=== PATIENT | female | born 1935 | race African-American/Black ===

== ENCOUNTER → 2017-02-17 | Outpatient (CLI) | payer MEDICARE, MEDICAID ==
[~2017-02-17] MED LIST: ASPI-1035 PO; ATOR40TA70 PO; DIALYVITE PO; DOCU100T8 PO; ESOM20CA PO; FE F; FOLI-43 PO; GLIP5TAB12 PO; LEVA15HF4 IH; MULT-783 PO; NAPR-681 PO; REGADENOSON 0.4 MG/5 ML IV ONE; SEVE800T8 PO
== END | disposition home or self-care (01) ==
LOC: NM 07:19
DX: R07.9 Chest pain, unspecified (principal); I12.9 Hypertensive chronic kidney disease with stage 1 through stage 4 chronic kidney disease, or unspecified chronic kidney disease; N18.9 Chronic kidney disease, unspecified
CPT/HCPCS: 78452; 93017; A9500; J2785

== ENCOUNTER 2017-09-03 14:41 | Inpatient (IN) | payer MEDICARE, MEDICAID ==
[~2017-09-03] VITALS: Ht 175.3 cm; Wt 104.8 kg
[~2017-09-03 14:41] MED LIST changes: -ASPI-1035 PO; +ASPI-1158 PO; -REGADENOSON 0.4 MG/5 ML IV ONE
[2017-09-03 17:41] LABS: BASOPHILS % 0.9 % (0.0-2.0); EOSINOPHILS % 2.1 % (0.0-5.0); HEMATOCRIT. 43.6 % (36.0-48.0); HEMOGLOBIN. 14.2 g/dL (12.0-16.0); LYMPHOCYTES % 17.5 % (20.0-50.0); MEAN CORPUSCULAR HEMOGLOBIN 28.1 pg (28.0-32.0); MONOCYTES % 8.2 % (2.0-8.0); NEUTROPHILS % 71.3 % (40.0-76.0); PLATELET 142 x1000/uL (130-400); RED BLOOD CELL COUNT 5.07 mill/uL (4.2-5.4); RED CELL DISTRIBUTION WIDTH 14.9 % (11.6-14.6)
[2017-09-03 17:45] LABS: INR 1.1; PROTHROMBIN TIME 11.6 sec (9.4-11.6)
[2017-09-03] MEDS ORDERED: HYDROCODONE/ACETAMINOPHEN 10/325MG TABLET PO PRN (23:45)
[2017-09-03] MEDS ORDERED: DIPHENHYDRAMINE 50MG/ML VIAL IV PRN (23:45)
[2017-09-03] MEDS ORDERED: ACETAMINOPHEN 325MG TABLET PO PRN (23:45)
[2017-09-03] MEDS ORDERED: CLONIDINE 0.1MG TABLET PO PRN (23:45)
[2017-09-03] MEDS ORDERED: DEXTROSE 50% WATER 50ML SYRINGE IV PRN (23:45)
[2017-09-03] MEDS ORDERED: NA PHOS,M-B/NA PHOS,DI-BA ENEMA 118ML PR PRN (23:45)
[2017-09-03] MEDS ORDERED: GUAIFENESIN 200MG/10ML SUGAR FREE UDC PO PRN (23:45)
[2017-09-03] MEDS ORDERED: MAGNESIUM/ALUMINUM HYDROXIDE/SIMETHICONE 30ML UDC PO PRN (23:45)
[2017-09-03] MEDS ORDERED: ACETAMINOPHEN 650MG SUPP PR PRN (23:45)
[2017-09-03] MEDS ORDERED: HYDROCODONE/ACETAMINOPHEN 5/325MG TABLET PO PRN (23:45)
[2017-09-03] MEDS ORDERED: DOCUSATE SODIUM 100MG CAPSULE PO PRN (23:45)
[2017-09-03] MEDS ORDERED: ACETAMINOPHEN 650MG/20.3ML UDC GT PRN (23:45)
[2017-09-03] MEDS ORDERED: IPRATROPIUM/ALBUTEROL 0.5-3(2.5)MG/3ML NEB INH PRN (23:45)
[2017-09-03] MEDS ORDERED: ONDANSETRON HCL 4MG/2ML VIAL IV PRN (23:45)
[2017-09-04] VITALS (7 sets, daily range): BP systolic 121–191; BP diastolic 48–94
[2017-09-04] MEDS: SODIUM CHLORIDE 0.9% INJ 3ML FLUSH IVF SCH ×3 (05:46→20:30)
[2017-09-04] MEDS ORDERED: BLOOD SUGAR DIAGNOSTIC STRIP TEST SCH (07:40)
[2017-09-04 07:42] LABS: CARBON DIOXIDE 27 mEq/L (21-32); CHLORIDE 96 mEq/L (98-107); CREATINE KINASE 82 IU/L (26-192); HDL CHOLESTEROL 40 mg/dL (40-59); LDL CHOLESTEROL 95 mg/dL (5-100); TROPONIN I 0.12 ng/mL (0.00-0.04)
[2017-09-04] MEDS ORDERED: INSULIN LISPRO 100 UNITS/ML SUBCUT SCH (08:10)
[2017-09-04 08:53] LABS: EOSINOPHILS % 4.9 % (0.0-5.0); HEMATOCRIT. 43.5 % (36.0-48.0); HEMOGLOBIN. 14.3 g/dL (12.0-16.0); LYMPHOCYTES % 31.9 % (20.0-50.0); MEAN CORPUSCULAR HEMOGLOBIN 28.5 pg (28.0-32.0); MEAN CORPUSCULAR VOLUME 86.4 fL (81.0-99.0); MEAN PLATELET VOLUME 9.1 fl (7.4-10.4); NEUTROPHILS % 52.2 % (40.0-76.0); PLATELET 139 x1000/uL (130-400); RED BLOOD CELL COUNT 5.03 mill/uL (4.2-5.4); RED CELL DISTRIBUTION WIDTH 14.8 % (11.6-14.6)
[2017-09-04] MEDS: AMLODIPINE 2.5MG TABLET PO SCH (10:30)
[2017-09-04] MEDS: DOCUSATE SODIUM 100MG CAPSULE PO SCH ×2 (10:30→17:18)
[2017-09-04] MEDS: LOSARTAN POTASSIUM 50 MG TABLET PO SCH (10:30)
[2017-09-04] MEDS: SEVELAMER CARBONATE 800 MG TABLET PO SCH ×2 (14:03→17:18)
[2017-09-04 15:49] LABS: TROPONIN I 0.11 ng/mL (0.00-0.04)
[2017-09-04] MEDS ORDERED: ATORVASTATIN CALCIUM 40MG TABLET PO SCH (21:00)
[2017-09-05 00:05] VITALS: BP 132/70
[2017-09-05 04:00] VITALS: BP 144/61
[2017-09-05] MEDS: SODIUM CHLORIDE 0.9% INJ 3ML FLUSH IVF SCH ×2 (05:40→14:21)
[2017-09-05 06:48] LABS: PHOSPHORUS 3.7 mg/dL (2.5-4.9)
[2017-09-05 08:00] VITALS: BP 129/75
[2017-09-05 08:11] LABS: BASOPHILS % 1.2 % (0.0-2.0); EOSINOPHILS % 4.9 % (0.0-5.0); HEMATOCRIT. 44.3 % (36.0-48.0); HEMOGLOBIN. 14.3 g/dL (12.0-16.0); LYMPHOCYTES % 28.9 % (20.0-50.0); MEAN CORPUSCULAR HEMOGLOBIN 28.1 pg (28.0-32.0); MEAN CORPUSCULAR VOLUME 86.8 fL (81.0-99.0); MEAN PLATELET VOLUME 9.3 fl (7.4-10.4); MONOCYTES % 9.1 % (2.0-8.0); NEUTROPHILS % 55.9 % (40.0-76.0); PLATELET 139 x1000/uL (130-400); RED CELL DISTRIBUTION WIDTH 14.9 % (11.6-14.6)
[2017-09-05] MEDS: AMLODIPINE 2.5MG TABLET PO SCH (08:22)
[2017-09-05] MEDS: LOSARTAN POTASSIUM 50 MG TABLET PO SCH (08:22)
[2017-09-05] MEDS: DOCUSATE SODIUM 100MG CAPSULE PO SCH ×2 (08:22→16:05)
[2017-09-05] MEDS: SEVELAMER CARBONATE 800 MG TABLET PO SCH (08:22)
[2017-09-05] MEDS ORDERED: FOLIC ACID/VITAMIN B COMP W-C TABLET PO SCH (09:00)
[2017-09-05 12:00] VITALS: BP 122/52
[2017-09-05 16:00] VITALS: BP 142/59
[2017-09-05 18:20] VITALS: BP 142/59
[2017-09-05] MEDS ORDERED: PREDNISOLONE ACETATE 1% OPHTH DROPS 1ML BOTHEYE SCH (20:00)
[2017-09-05] MEDS ORDERED: CIPROFLOXACIN 0.3% OPHTH SOLN 2.5ML BOTHEYE SCH (21:00)
== END 2017-09-05 18:45 | disposition home or self-care (01) | DRG 124 ==
LOC: ER 15:14 → 7WST 22:51 → EDBEDREQTM 22:57 → EDBEDREQ 22:57 → ENRESERV 09-04 03:32
PROVIDERS: ADMIT Family Medicine; ATTEND Family Medicine
PROC: 5A1D70Z Performance of Urinary Filtration, Intermittent, Less than 6 Hours Per Day (ICD-10-PCS; principal; 2017-09-04)
DX: S05.12XA Contusion of eyeball and orbital tissues, left eye, initial encounter (principal); N18.6 End stage renal disease; I13.2 Hypertensive heart and chronic kidney disease with heart failure and with stage 5 chronic kidney disease, or end stage renal disease; E46 Unspecified protein-calorie malnutrition; E11.22 Type 2 diabetes mellitus with diabetic chronic kidney disease; Q61.3 Polycystic kidney, unspecified; N18.5 Chronic kidney disease, stage 5; E11.40 Type 2 diabetes mellitus with diabetic neuropathy, unspecified; I50.9 Heart failure, unspecified; W01.0XXA Fall on same level from slipping, tripping and stumbling without subsequent striking against object, initial encounter; M54.16 Radiculopathy, lumbar region; E87.5 Hyperkalemia; M48.061 Spinal stenosis, lumbar region without neurogenic claudication; J45.909 Unspecified asthma, uncomplicated; E21.3 Hyperparathyroidism, unspecified; K21.9 Gastro-esophageal reflux disease without esophagitis; E66.9 Obesity, unspecified; E78.5 Hyperlipidemia, unspecified; M16.11 Unilateral primary osteoarthritis, right hip; H57.8 Other specified disorders of eye and adnexa; Z99.2 Dependence on renal dialysis; Z79.899 Other long term (current) drug therapy; Z79.82 Long term (current) use of aspirin; Z82.49 Family history of ischemic heart disease and other diseases of the circulatory system; Z83.3 Family history of diabetes mellitus; Y93.89 Activity, other specified; Y92.89 Other specified places as the place of occurrence of the external cause; Y99.8 Other external cause status; Z68.34 Body mass index [BMI] 34.0-34.9, adult; E83.39 Other disorders of phosphorus metabolism; H26.9 Unspecified cataract; H11.32 Conjunctival hemorrhage, left eye; K76.89 Other specified diseases of liver
CPT/HCPCS: 36415; 70450; 70486; 71010; 80048; 80053; 80061; 82550; 82962; 84100; 84484; 85025; 85610; 93005; 97162; 97166; 99285; J7030

== ENCOUNTER 2018-05-14 08:39 | Inpatient (IN) | payer MEDICARE, MEDICAID ==
[~2018-05-14] VITALS: Ht 175.3 cm; Wt 97.8 kg
[2018-05-14] MEDS ORDERED: KETOROLAC 30MG/ML VIAL IV STA (10:09)
[2018-05-14] MEDS ORDERED: ONDANSETRON HCL 4MG/2ML VIAL IV STA (10:09)
[2018-05-14] MEDS ORDERED: ACETAMINOPHEN 325MG TABLET PO STA (10:09)
[2018-05-14] MEDS ORDERED: SODIUM CHLORIDE 0.9% 1,000 ML IV ONE (10:09)
[2018-05-14] MEDS ORDERED: MORPHINE SULFATE 4 MG/ML CPJ (NOT FOR IM USE) IV STA (10:09)
[2018-05-14] MEDS ORDERED: VANCOMYCIN 1 G PREMIX 200 ML IV ONE (10:15)
[2018-05-14] MEDS ORDERED: PIPERACILLIN/TAZ 3.375G PREMIX 50 ML IV ONE (10:15)
[2018-05-14 10:33] LABS: HEMATOCRIT. 38.4 % (36.0-48.0); HEMOGLOBIN. 12.5 g/dL (12.0-16.0); MEAN CORPUSCULAR HEMOGLOBIN 26.9 pg (28.0-32.0); MEAN CORPUSCULAR VOLUME 83.1 fL (81.0-99.0); MEAN PLATELET VOLUME 9.5 fl (7.4-10.4); PLATELET 140 x1000/uL (130-400); RED BLOOD CELL COUNT 4.62 mill/uL (4.2-5.4); RED CELL DISTRIBUTION WIDTH 14.9 % (11.6-14.6)
[2018-05-14 10:39] LABS: CHLORIDE 89 mEq/L (98-107)
[2018-05-14 10:41] LABS: INR 1.3
[2018-05-14 10:54] LABS: PLATELET ESTIMATE NORMAL
[2018-05-14 15:55] VITALS: BP 125/47
[2018-05-14 16:00] VITALS: BP 134/60
[2018-05-14 18:00] VITALS: BP 130/68
[2018-05-14] MEDS ORDERED: ACETAMINOPHEN 325MG TABLET PO PRN (18:15)
[2018-05-14] MEDS ORDERED: ONDANSETRON HCL 4MG/2ML VIAL IV PRN (18:15)
[2018-05-14] MEDS ORDERED: MEDICATION NOT ON FORMULARY EA (Sevelamer Carbonate (Renvela) 1 TAB) PO SCH (18:15)
[2018-05-14] MEDS ORDERED: IPRATROPIUM/ALBUTEROL 0.5-3(2.5)MG/3ML NEB INH PRN (18:15)
[2018-05-14] MEDS ORDERED: GUAIFENESIN 200MG/10ML SUGAR FREE UDC PO PRN (18:15)
[2018-05-14] MEDS ORDERED: MAGNESIUM/ALUMINUM HYDROXIDE/SIMETHICONE 30ML UDC PO PRN (18:15)
[2018-05-14] MEDS ORDERED: NA PHOS,M-B/NA PHOS,DI-BA ENEMA 118ML PR PRN (18:15)
[2018-05-14] MEDS ORDERED: GLIPIZIDE 5MG TABLET PO SCH (18:15)
[2018-05-14] MEDS ORDERED: HYDROCODONE/ACETAMINOPHEN 5/325MG TABLET PO PRN (18:15)
[2018-05-14] MEDS ORDERED: DOCUSATE SODIUM 100MG CAPSULE PO PRN (18:15)
[2018-05-14] MEDS ORDERED: ACETAMINOPHEN 650MG/20.3ML UDC GT PRN (18:15)
[2018-05-14] MEDS: SEVELAMER CARBONATE 800 MG TABLET PO SCH (18:34)
[2018-05-14] MEDS: ENOXAPARIN 30MG/0.3ML SYR SUBCUT SCH (19:01)
[2018-05-14 20:00] VITALS: BP 124/68
[2018-05-14] MEDS ORDERED: ATORVASTATIN CALCIUM 40MG TABLET PO SCH (21:00)
[2018-05-14] MEDS: SODIUM CHLORIDE 0.9% INJ 3ML FLUSH IVF SCH (21:03)
[2018-05-14] MEDS: BLOOD SUGAR DIAGNOSTIC STRIP TEST SCH (21:03)
[2018-05-14] MEDS: PIPERACILLIN/TAZ 2.25G PREMIX 50 ML IV SCH (21:03)
[2018-05-14] MEDS: INSULIN LISPRO 100 UNITS/ML SUBCUT SCH (21:09)
[2018-05-14 22:00] VITALS: BP 158/80
[2018-05-15] VITALS (12 sets, daily range): BP systolic 78–161; BP diastolic 38–103
[2018-05-15] MEDS: DEXTROSE 50% WATER 50ML SYRINGE IV PRN (06:13)
[2018-05-15] MEDS: HYDROCODONE/ACETAMINOPHEN 10/325MG TABLET PO PRN ×2 (06:14→10:54)
[2018-05-15] MEDS: BLOOD SUGAR DIAGNOSTIC STRIP TEST SCH ×4 (06:17→20:17)
[2018-05-15] MEDS: SEVELAMER CARBONATE 800 MG TABLET PO SCH ×4 (06:17→18:20)
[2018-05-15] MEDS: SODIUM CHLORIDE 0.9% INJ 3ML FLUSH IVF SCH ×3 (06:17→22:57)
[2018-05-15 06:39] LABS: HEMATOCRIT. 35.6 % (36.0-48.0); HEMOGLOBIN. 11.6 g/dL (12.0-16.0); MEAN CORPUSCULAR HEMOGLOBIN 27.4 pg (28.0-32.0); MEAN CORPUSCULAR VOLUME 84.1 fL (81.0-99.0); MEAN PLATELET VOLUME 10.2 fl (7.4-10.4); PLATELET 130 x1000/uL (130-400); RED BLOOD CELL COUNT 4.23 mill/uL (4.2-5.4); RED CELL DISTRIBUTION WIDTH 15.4 % (11.6-14.6)
[2018-05-15] MEDS: INSULIN LISPRO 100 UNITS/ML SUBCUT SCH ×4 (06:49→20:17)
[2018-05-15 07:43] LABS: CHLORIDE 91 mEq/L (98-107)
[2018-05-15 08:01] LABS: PHOSPHORUS 4.3 mg/dL (2.5-4.9)
[2018-05-15 08:02] LABS: LDL CHOLESTEROL 42 mg/dL (5-100)
[2018-05-15 08:03] LABS: HDL CHOLESTEROL 10 mg/dL (40-59)
[2018-05-15] MEDS ORDERED: DEXT 10%/0.9% NACL 1,000 ML IV ONE (08:30)
[2018-05-15] MEDS ORDERED: DEXTROSE 10% IV ONE (09:30)
[2018-05-15] MEDS ORDERED: SODIUM ACETATE IV ONE (09:30)
[2018-05-15] MEDS ORDERED: WATER IV ONE (09:30)
[2018-05-15] MEDS: PIPERACILLIN/TAZ 2.25G PREMIX 50 ML IV SCH ×2 (12:04→22:57)
[2018-05-15 15:44] LABS: PLATELET ESTIMATE NORMAL
[2018-05-15] MEDS: AMIODARONE HCL 200 MG TABLET PO SCH (18:20)
[2018-05-15] MEDS: ENOXAPARIN 30MG/0.3ML SYR SUBCUT SCH (18:21)
[2018-05-15] MEDS: ATORVASTATIN CALCIUM 20MG TABLET PO SCH (20:12)
[2018-05-16] VITALS (31 sets, daily range): BP systolic 82–145; BP diastolic 39–110
[2018-05-16] MEDS: BLOOD SUGAR DIAGNOSTIC STRIP TEST SCH ×4 (06:09→21:00)
[2018-05-16] MEDS: SODIUM CHLORIDE 0.9% INJ 3ML FLUSH IVF SCH ×3 (06:10→22:00)
[2018-05-16 06:42] LABS: BASOPHILS % 0.2 % (0.0-2.0); EOSINOPHILS % 0.9 % (0.0-5.0); HEMATOCRIT. 34.8 % (36.0-48.0); HEMOGLOBIN. 11.3 g/dL (12.0-16.0); LYMPHOCYTES % 12.4 % (20.0-50.0); MEAN CORPUSCULAR HEMOGLOBIN 27.4 pg (28.0-32.0); MEAN CORPUSCULAR VOLUME 84.6 fL (81.0-99.0); MEAN PLATELET VOLUME 9.9 fl (7.4-10.4); MONOCYTES % 13.6 % (2.0-8.0); NEUTROPHILS % 72.9 % (40.0-76.0); PLATELET 115 x1000/uL (130-400); RED BLOOD CELL COUNT 4.11 mill/uL (4.2-5.4); RED CELL DISTRIBUTION WIDTH 15.3 % (11.6-14.6)
[2018-05-16] MEDS: INSULIN LISPRO 100 UNITS/ML SUBCUT SCH ×5 (07:20→21:00)
[2018-05-16 07:35] LABS: CHLORIDE 98 mEq/L (98-107); PHOSPHORUS 2.8 mg/dL (2.5-4.9)
[2018-05-16] MEDS: SEVELAMER CARBONATE 800 MG TABLET PO SCH (08:10)
[2018-05-16] MEDS: AMIODARONE HCL 200 MG TABLET PO SCH (08:10)
[2018-05-16] MEDS: PIPERACILLIN/TAZ 2.25G PREMIX 50 ML IV SCH (09:39)
[2018-05-16] MEDS ORDERED: CLONIDINE 0.1MG TABLET PO PRN (09:45)
[2018-05-16] MEDS ORDERED: CLONIDINE 0.2MG TABLET PO PRN ×2 (09:45→13:45)
[2018-05-16] MEDS ORDERED: IPRATROPIUM/ALBUTEROL 0.5-3(2.5)MG/3ML NEB INH PRN (11:00)
[2018-05-16] MEDS ORDERED: DIGOXIN 500MCG/2ML AMP IV NR (14:30)
[2018-05-16] MEDS ORDERED: AMIODARONE HCL 150 MG in DEXT 5% WATER 100 ML IV NR (14:30)
[2018-05-16] MEDS ORDERED: CEFAZOLIN 2,000 MG in DEXT 5% WATER 100 ML IV SCH (15:00)
[2018-05-16] MEDS: DEXTROSE 50% WATER 50ML SYRINGE IV PRN (16:55)
[2018-05-16] MEDS: ACETAMINOPHEN 650MG SUPP PR PRN (17:07)
[2018-05-16] MEDS ORDERED: DIGOXIN 500MCG/2ML AMP IV PRN (17:30)
[2018-05-16] MEDS ORDERED: SODIUM CHLORIDE 0.9% 1000ML BAG (SEPSIS BOLUS) IV ONE (18:00)
[2018-05-16] MEDS ORDERED: NOREPINEPHRINE 4 MG in DEXT 5% WATER 246 ML IV PRN ×5 (18:00→18:30)
[2018-05-16] MEDS ORDERED: ALBUMIN HUMAN 25GM/100ML (25%) IV NR (18:00)
[2018-05-16 18:22] LABS: BG BASE EXCESS 0.8 mmol/L (-2.0-2.0); BG CARBOXYHEMOGLOBIN 0.8 % (0.5-1.5); BG DEOXYHEMOGLOBIN 10.1 % (0.0-5.0); BG FRACTION INSPIRED OXYGEN 44; BG HCO3 ACT 25.4 mmol/L (22.0-26.0); BG METHEMOGLOBIN 0.2 % (0.0-1.5); BG OXYGEN SATURATION 89.8 % (92.0-98.5); BG OXYHEMOGLOBIN 88.9 % (94.0-97.0); BG PCO2 40.6 mmHg (35.0-45.0); BG PH 7.415 (7.350-7.450); BG SAMPLE SITE LEFT BRACHIAL; BG TOTAL HEMOGLOBIN 10.8 g/dL (12.0-18.0); BG VENT MODE NASAL CANNULA
[2018-05-16] MEDS ORDERED: NOREPINEPHRINE BITARTRATE 1MG/ML 4ML IV ONE (18:24)
[2018-05-16 18:26] LABS: BG CALCIUM 1.14 mmol/L (1.13-1.32); BG CHLORIDE 98 mmol/L (98-106); BG PO2 54.8 mmHg (75.0-100.0); BG SODIUM 131.8 mmol/L (135.0-148.0)
[2018-05-16] MEDS ORDERED: NOREPINEPHRINE 16 MG in DEXT 5% WATER 234 ML IV PRN (18:30)
[2018-05-16] MEDS ORDERED: LEVOFLOXACIN 500MG PREMIX 100 ML IV NR (19:00)
[2018-05-16] MEDS ORDERED: VANCOMYCIN 1 G PREMIX 200 ML IV NR (19:30)
[2018-05-16 19:46] LABS: HEMATOCRIT. 34.8 % (36.0-48.0); HEMOGLOBIN. 10.9 g/dL (12.0-16.0); MEAN CORPUSCULAR HEMOGLOBIN 26.6 pg (28.0-32.0); MEAN CORPUSCULAR VOLUME 84.9 fL (81.0-99.0); MEAN PLATELET VOLUME 9.9 fl (7.4-10.4); PLATELET 142 x1000/uL (130-400); RED CELL DISTRIBUTION WIDTH 15.2 % (11.6-14.6)
[2018-05-16 19:51] LABS: CHLORIDE 98 mEq/L (98-107)
[2018-05-16 20:37] LABS: PLATELET ESTIMATE NORMAL
[2018-05-16] MEDS: ENOXAPARIN 30MG/0.3ML SYR SUBCUT SCH (20:44)
[2018-05-16] MEDS: ATORVASTATIN CALCIUM 20MG TABLET PO SCH (21:00)
[2018-05-17] VITALS (63 sets, daily range): BP systolic 93–166; BP diastolic 33–95
[2018-05-17] MEDS: PIPERACILLIN/TAZ 2.25G PREMIX 50 ML IV SCH ×2 (01:55→12:53)
[2018-05-17] MEDS: SODIUM CHLORIDE 0.9% INJ 3ML FLUSH IVF SCH ×3 (05:19→21:58)
[2018-05-17 05:37] LABS: BASOPHILS % 0.3 % (0.0-2.0); CHLORIDE 97 mEq/L (98-107); HEMATOCRIT. 33.1 % (36.0-48.0); HEMOGLOBIN. 10.7 g/dL (12.0-16.0); LYMPHOCYTES % 12.1 % (20.0-50.0); MEAN CORPUSCULAR HEMOGLOBIN 27.1 pg (28.0-32.0); MEAN CORPUSCULAR VOLUME 83.7 fL (81.0-99.0); MEAN PLATELET VOLUME 9.4 fl (7.4-10.4); MONOCYTES % 14.2 % (2.0-8.0); NEUTROPHILS % 72.4 % (40.0-76.0); PLATELET 133 x1000/uL (130-400); RED BLOOD CELL COUNT 3.95 mill/uL (4.2-5.4); RED CELL DISTRIBUTION WIDTH 15.5 % (11.6-14.6)
[2018-05-17 05:45] LABS: CREATINE KINASE 185 IU/L (26-192)
[2018-05-17] MEDS ORDERED: LIDOCAINE HCL 1% 20ML VIAL (Pyxis) INJ ONE (07:27)
[2018-05-17] MEDS: DEXTROSE 50% WATER 50ML SYRINGE IV PRN (07:51)
[2018-05-17] MEDS: BLOOD SUGAR DIAGNOSTIC STRIP TEST SCH ×3 (08:01→23:58)
[2018-05-17] MEDS: INSULIN LISPRO 100 UNITS/ML SUBCUT SCH ×3 (08:01→23:58)
[2018-05-17] MEDS: HYDROCODONE/ACETAMINOPHEN 10/325MG TABLET PO PRN (08:11)
[2018-05-17] MEDS ORDERED: DEXT 5%/0.9% NACL 1,000 ML IV SCH (09:00)
[2018-05-17] MEDS ORDERED: VANCOMYCIN 1 G PREMIX 200 ML IV SCH (14:00)
[2018-05-17] MEDS ORDERED: DEXTROSE 50% WATER 50ML SYRINGE IV PRN (16:15)
[2018-05-17] MEDS ORDERED: BLOOD SUGAR DIAGNOSTIC STRIP TEST SCH (18:00)
[2018-05-17 18:59] LABS: BG BASE EXCESS -0.7 mmol/L (-2.0-2.0); BG DEOXYHEMOGLOBIN 2.7 % (0.0-5.0); BG FRACTION INSPIRED OXYGEN 32; BG HCO3 ACT 25.7 mmol/L (22.0-26.0); BG METHEMOGLOBIN 0.3 % (0.0-1.5); BG OXYGEN SATURATION 97.3 % (92.0-98.5); BG PCO2 49.9 mmHg (35.0-45.0); BG PH 7.329 (7.350-7.450); BG PO2 94.7 mmHg (75.0-100.0); BG SAMPLE SITE LEFT RADIAL; BG TOTAL HEMOGLOBIN 11.4 g/dL (12.0-18.0); BG VENT MODE NASAL CANNULA
[2018-05-17] MEDS ORDERED: DEXT 10% WATER 1,000 ML IV SCH (19:15)
[2018-05-17] MEDS: AMIODARONE HCL 200 MG TABLET PO SCH (21:00)
[2018-05-17] MEDS: ATORVASTATIN CALCIUM 20MG TABLET PO SCH (21:00)
[2018-05-17 23:03] LABS: BG BILEVEL POS AIRWAY PRESSURE 15/5; BG CARBOXYHEMOGLOBIN 0.5 % (0.5-1.5); BG DEOXYHEMOGLOBIN 1.4 % (0.0-5.0); BG FRACTION INSPIRED OXYGEN 40; BG HCO3 ACT 25.9 mmol/L (22.0-26.0); BG METHEMOGLOBIN 0.3 % (0.0-1.5); BG OXYGEN SATURATION 98.6 % (92.0-98.5); BG OXYHEMOGLOBIN 97.8 % (94.0-97.0); BG PCO2 53.5 mmHg (35.0-45.0); BG PH 7.303 (7.350-7.450); BG PO2 133.3 mmHg (75.0-100.0); BG SAMPLE SITE RIGHT BRACHIAL; BG VENT MODE MASK - BIPAP
[2018-05-17] MEDS: ENOXAPARIN 30MG/0.3ML SYR SUBCUT SCH (23:32)
[2018-05-18] VITALS (59 sets, daily range): BP systolic 85–177; BP diastolic 41–81
[2018-05-18] MEDS: PIPERACILLIN/TAZ 2.25G PREMIX 50 ML IV SCH ×2 (00:25→12:10)
[2018-05-18] MEDS: HYDROMORPHONE HCL/PF 2MG/ML CPJ IV PRN ×4 (01:29→17:48)
[2018-05-18] MEDS: ACETAMINOPHEN 650MG SUPP PR PRN (01:34)
[2018-05-18] MEDS: BLOOD SUGAR DIAGNOSTIC STRIP TEST SCH ×5 (04:00→20:30)
[2018-05-18] MEDS: SODIUM CHLORIDE 0.9% INJ 3ML FLUSH IVF SCH ×3 (04:13→21:44)
[2018-05-18] MEDS: INSULIN LISPRO 100 UNITS/ML SUBCUT SCH (05:44)
[2018-05-18 07:09] LABS: BASOPHILS % 0.6 % (0.0-2.0); EOSINOPHILS % 1.2 % (0.0-5.0); HEMATOCRIT. 31.6 % (36.0-48.0); LYMPHOCYTES % 16.5 % (20.0-50.0); MEAN CORPUSCULAR VOLUME 85.3 fL (81.0-99.0); MONOCYTES % 10.6 % (2.0-8.0); NEUTROPHILS % 71.1 % (40.0-76.0); RED CELL DISTRIBUTION WIDTH 15.7 % (11.6-14.6)
[2018-05-18 07:38] LABS: CHLORIDE 107 mEq/L (98-107)
[2018-05-18 07:58] LABS: PHOSPHORUS 3.3 mg/dL (2.5-4.9)
[2018-05-18] MEDS ORDERED: DEXT 5%/0.9% NACL 1,000 ML IV SCH (08:30)
[2018-05-18] MEDS: DIPHENHYDRAMINE 50MG/ML VIAL IV PRN ×2 (08:45→17:48)
[2018-05-18] MEDS: AMIODARONE HCL 200 MG TABLET PO SCH ×2 (09:00→20:30)
[2018-05-18 09:01] LABS: BG BASE EXCESS -1.6 mmol/L (-2.0-2.0); BG BILEVEL POS AIRWAY PRESSURE ST=15/5; BG CARBOXYHEMOGLOBIN 0.9 % (0.5-1.5); BG DEOXYHEMOGLOBIN 0.7 % (0.0-5.0); BG FRACTION INSPIRED OXYGEN 40; BG HCO3 ACT 25.1 mmol/L (22.0-26.0); BG METHEMOGLOBIN 0.1 % (0.0-1.5); BG OXYGEN SATURATION 99.3 % (92.0-98.5); BG OXYHEMOGLOBIN 98.3 % (94.0-97.0); BG PCO2 51.5 mmHg (35.0-45.0); BG PH 7.306 (7.350-7.450); BG PO2 159.9 mmHg (75.0-100.0); BG PRESSURE SUPPORT 10; BG SAMPLE SITE LEFT RADIAL; BG VENT MODE MASK - BIPAP; BG VENT RATE 14 set
[2018-05-18 09:13] LABS: MEAN PLATELET VOLUME 9.3 fl (7.4-10.4); PLATELET 147 x1000/uL (130-400)
[2018-05-18] MEDS: DEXTROSE IV SCH (10:31)
[2018-05-18] MEDS: DEXT IV SCH (10:31)
[2018-05-18] MEDS: NACL IV SCH (10:31)
[2018-05-18] MEDS: WATER IV SCH (10:31)
[2018-05-18] MEDS ORDERED: HYDROMORPHONE HCL/PF 2MG/ML CPJ IV NR (11:00)
[2018-05-18] MEDS ORDERED: IPRATROPIUM/ALBUTEROL 0.5-3(2.5)MG/3ML NEB HHN PRN (11:30)
[2018-05-18] MEDS: IPRATROPIUM/ALBUTEROL 0.5-3(2.5)MG/3ML NEB HHN SCH ×3 (12:21→20:19)
[2018-05-18] MEDS: ENOXAPARIN 30MG/0.3ML SYR SUBCUT SCH (17:49)
[2018-05-18] MEDS: ATORVASTATIN CALCIUM 20MG TABLET PO SCH (20:54)
[2018-05-18] MEDS ORDERED: LEVOFLOXACIN 250MG PREMIX 50 ML IV SCH (21:00)
[2018-05-19] VITALS (59 sets, daily range): BP systolic 82–173; BP diastolic 31–94
[2018-05-19] MEDS: PIPERACILLIN/TAZ 2.25G PREMIX 50 ML IV SCH ×2 (00:04→12:21)
[2018-05-19] MEDS: BLOOD SUGAR DIAGNOSTIC STRIP TEST SCH ×7 (00:04→23:37)
[2018-05-19] MEDS: IPRATROPIUM/ALBUTEROL 0.5-3(2.5)MG/3ML NEB HHN SCH ×6 (00:47→20:37)
[2018-05-19] MEDS: SODIUM CHLORIDE 0.9% INJ 3ML FLUSH IVF SCH ×3 (05:54→21:25)
[2018-05-19 06:10] LABS: EOSINOPHILS % 1.4 % (0.0-5.0); HEMATOCRIT. 29.3 % (36.0-48.0); HEMOGLOBIN. 9.4 g/dL (12.0-16.0); LYMPHOCYTES % 11.6 % (20.0-50.0); MEAN CORPUSCULAR HEMOGLOBIN 27.1 pg (28.0-32.0); MEAN CORPUSCULAR VOLUME 84.7 fL (81.0-99.0); MONOCYTES % 9.6 % (2.0-8.0); NEUTROPHILS % 76.4 % (40.0-76.0); RED BLOOD CELL COUNT 3.46 mill/uL (4.2-5.4); RED CELL DISTRIBUTION WIDTH 15.7 % (11.6-14.6)
[2018-05-19] MEDS: AMIODARONE HCL 200 MG TABLET PO SCH ×2 (09:00→21:16)
[2018-05-19 09:30] LABS: PLATELET 121 x1000/uL (130-400)
[2018-05-19 09:31] LABS: MEAN PLATELET VOLUME 9.2 fl (7.4-10.4)
[2018-05-19 09:53] LABS: BG BASE EXCESS 1.5 mmol/L (-2.0-2.0); BG BILEVEL POS AIRWAY PRESSURE 15/5; BG CARBOXYHEMOGLOBIN 0.3 % (0.5-1.5); BG DEOXYHEMOGLOBIN 1.1 % (0.0-5.0); BG HCO3 ACT 27.3 mmol/L (22.0-26.0); BG METHEMOGLOBIN 0.5 % (0.0-1.5); BG OXYGEN SATURATION 98.9 % (92.0-98.5); BG OXYHEMOGLOBIN 98.1 % (94.0-97.0); BG PCO2 48.4 mmHg (35.0-45.0); BG PH 7.369 (7.350-7.450); BG PO2 147.9 mmHg (75.0-100.0); BG SAMPLE SITE LEFT RADIAL; BG TOTAL HEMOGLOBIN 11.5 g/dL (12.0-18.0); BG VENT MODE MASK - BIPAP; BG VENT RATE 14 set
[2018-05-19] MEDS ORDERED: HYDRALAZINE 20MG/ML VIAL IV PRN (10:15)
[2018-05-19] MEDS ORDERED: AMIODARONE HCL 150 MG in DEXT 5% WATER 100 ML IV NR (11:30)
[2018-05-19] MEDS ORDERED: MORPHINE SULFATE 4 MG/ML CPJ (NOT FOR IM USE) IV PRN (11:45)
[2018-05-19] MEDS: DEXTROSE IV SCH (12:06)
[2018-05-19] MEDS: DEXT IV SCH (12:06)
[2018-05-19] MEDS: WATER IV SCH (12:06)
[2018-05-19] MEDS: NACL IV SCH (12:06)
[2018-05-19] MEDS: AMIODARONE HCL 900 MG in DEXT 5% WATER 482 ML IV SCH (12:09)
[2018-05-19] MEDS ORDERED: VANCOMYCIN 1 G PREMIX 200 ML IV NR (14:00)
[2018-05-19] MEDS ORDERED: LIDOCAINE HCL/PF 1% 2ML VIAL ONE (15:01)
[2018-05-19] MEDS: ENOXAPARIN 30MG/0.3ML SYR SUBCUT SCH (19:01)
[2018-05-19] MEDS: CARVEDILOL 3.125 MG TABLET PO SCH (21:16)
[2018-05-19] MEDS: ATORVASTATIN CALCIUM 20MG TABLET PO SCH (21:16)
[2018-05-20] VITALS (12 sets, daily range): BP systolic 102–165; BP diastolic 49–70
[2018-05-20] MEDS: IPRATROPIUM/ALBUTEROL 0.5-3(2.5)MG/3ML NEB HHN SCH ×6 (00:34→19:49)
[2018-05-20] MEDS: PIPERACILLIN/TAZ 2.25G PREMIX 50 ML IV SCH ×2 (01:46→12:13)
[2018-05-20] MEDS: BLOOD SUGAR DIAGNOSTIC STRIP TEST SCH ×5 (05:13→20:00)
[2018-05-20] MEDS: SODIUM CHLORIDE 0.9% INJ 3ML FLUSH IVF SCH (06:50)
[2018-05-20] MEDS: AMIODARONE HCL 200 MG TABLET PO SCH ×2 (08:18→21:44)
[2018-05-20] MEDS: CARVEDILOL 3.125 MG TABLET PO SCH ×2 (08:18→21:44)
[2018-05-20 08:49] LABS: BASOPHILS % 0.1 % (0.0-2.0); EOSINOPHILS % 1.7 % (0.0-5.0); HEMATOCRIT. 29.8 % (36.0-48.0); HEMOGLOBIN. 9.7 g/dL (12.0-16.0); LYMPHOCYTES % 11.4 % (20.0-50.0); MEAN CORPUSCULAR HEMOGLOBIN 27.4 pg (28.0-32.0); MEAN CORPUSCULAR VOLUME 84.2 fL (81.0-99.0); MEAN PLATELET VOLUME 8.8 fl (7.4-10.4); MONOCYTES % 7.9 % (2.0-8.0); NEUTROPHILS % 78.9 % (40.0-76.0); PLATELET 124 x1000/uL (130-400); RED BLOOD CELL COUNT 3.55 mill/uL (4.2-5.4); RED CELL DISTRIBUTION WIDTH 15.5 % (11.6-14.6)
[2018-05-20 08:57] LABS: CHLORIDE 102 mEq/L (98-107)
[2018-05-20 09:15] LABS: PHOSPHORUS 2.9 mg/dL (2.5-4.9)
[2018-05-20] MEDS: AMIODARONE HCL 900 MG in DEXT 5% WATER 482 ML IV SCH (10:26)
[2018-05-20] MEDS: WATER IV SCH (11:13)
[2018-05-20] MEDS: DEXT IV SCH (11:13)
[2018-05-20] MEDS: DEXTROSE IV SCH (11:13)
[2018-05-20] MEDS: NACL IV SCH (11:13)
[2018-05-20] MEDS: ENOXAPARIN 30MG/0.3ML SYR SUBCUT SCH (17:32)
[2018-05-20] MEDS: ATORVASTATIN CALCIUM 20MG TABLET PO SCH (21:44)
[2018-05-21] VITALS (12 sets, daily range): BP systolic 111–159; BP diastolic 46–77
[2018-05-21] MEDS: BLOOD SUGAR DIAGNOSTIC STRIP TEST SCH ×6 (00:12→21:00)
[2018-05-21] MEDS: PIPERACILLIN/TAZ 2.25G PREMIX 50 ML IV SCH ×2 (00:12→11:57)
[2018-05-21] MEDS: IPRATROPIUM/ALBUTEROL 0.5-3(2.5)MG/3ML NEB HHN SCH ×6 (00:23→21:06)
[2018-05-21 06:30] LABS: BASOPHILS % 0.3 % (0.0-2.0); EOSINOPHILS % 1.8 % (0.0-5.0); HEMATOCRIT. 27.6 % (36.0-48.0); HEMOGLOBIN. 8.9 g/dL (12.0-16.0); LYMPHOCYTES % 13.5 % (20.0-50.0); MEAN CORPUSCULAR HEMOGLOBIN 27.1 pg (28.0-32.0); MEAN PLATELET VOLUME 9.2 fl (7.4-10.4); MONOCYTES % 6.9 % (2.0-8.0); NEUTROPHILS % 77.5 % (40.0-76.0); PLATELET 112 x1000/uL (130-400); RED BLOOD CELL COUNT 3.29 mill/uL (4.2-5.4); RED CELL DISTRIBUTION WIDTH 15.1 % (11.6-14.6)
[2018-05-21 06:44] LABS: CHLORIDE 104 mEq/L (98-107)
[2018-05-21 07:00] LABS: PHOSPHORUS 3.3 mg/dL (2.5-4.9)
[2018-05-21] MEDS: CARVEDILOL 3.125 MG TABLET PO SCH ×2 (08:36→21:18)
[2018-05-21] MEDS: AMIODARONE HCL 200 MG TABLET PO SCH ×2 (08:36→21:18)
[2018-05-21] MEDS ORDERED: METOCLOPRAMIDE HCL 5MG TABLET PO PRN (10:00)
[2018-05-21] MEDS: OMEPRAZOLE 20MG CAPSULE EXTENDED RELEASE PO SCH (10:34)
[2018-05-21] MEDS: METOCLOPRAMIDE HCL 5MG TABLET PO SCH ×3 (11:53→21:18)
[2018-05-21] MEDS: NACL IV SCH (11:54)
[2018-05-21] MEDS: WATER IV SCH (11:54)
[2018-05-21] MEDS: DEXTROSE IV SCH (11:54)
[2018-05-21] MEDS: DEXT IV SCH (11:54)
[2018-05-21] MEDS: ATORVASTATIN CALCIUM 20MG TABLET PO SCH (21:18)
[2018-05-22] VITALS (15 sets, daily range): BP systolic 121–165; BP diastolic 55–77
[2018-05-22] MEDS: IPRATROPIUM/ALBUTEROL 0.5-3(2.5)MG/3ML NEB HHN SCH ×6 (00:46→20:36)
[2018-05-22] MEDS: PIPERACILLIN/TAZ 2.25G PREMIX 50 ML IV SCH (00:49)
[2018-05-22 05:34] LABS: HEMATOCRIT. 21.4 % (36.0-48.0); MEAN CORPUSCULAR HEMOGLOBIN 27.3 pg (28.0-32.0); MEAN CORPUSCULAR VOLUME 83.5 fL (81.0-99.0); MEAN PLATELET VOLUME 8.8 fl (7.4-10.4); PLATELET 103 x1000/uL (130-400); RED BLOOD CELL COUNT 2.56 mill/uL (4.2-5.4); RED CELL DISTRIBUTION WIDTH 14.9 % (11.6-14.6)
[2018-05-22 05:37] LABS: INR 1.3; PROTHROMBIN TIME 13.4 sec (9.4-11.6)
[2018-05-22] MEDS: METOCLOPRAMIDE HCL 5MG TABLET PO SCH (06:11)
[2018-05-22] MEDS: OMEPRAZOLE 20MG CAPSULE EXTENDED RELEASE PO SCH (06:11)
[2018-05-22 06:15] LABS: CHLORIDE 105 mEq/L (98-107)
[2018-05-22 06:24] LABS: PHOSPHORUS 3.9 mg/dL (2.5-4.9)
[2018-05-22] MEDS: BLOOD SUGAR DIAGNOSTIC STRIP TEST SCH ×4 (07:24→20:53)
[2018-05-22] MEDS ORDERED: ACETAMINOPHEN 325MG TABLET PO SCH (07:45)
[2018-05-22] MEDS ORDERED: PANTOPRAZOLE SODIUM 40 MG/VIAL IV SCH (08:00)
[2018-05-22] MEDS: AMIODARONE HCL 200 MG TABLET PO SCH ×2 (08:20→20:53)
[2018-05-22] MEDS: CARVEDILOL 3.125 MG TABLET PO SCH ×2 (08:20→20:53)
[2018-05-22 10:38] LABS: PLATELET ESTIMATE DECREASED
[2018-05-22] MEDS: METOCLOPRAMIDE HCL 10MG/2ML VIAL IV SCH ×3 (12:00→23:35)
[2018-05-22] MEDS ORDERED: SIMETHICONE 40 MG/0.6 ML 30ML ONE (12:21)
[2018-05-22] MEDS ORDERED: SODIUM CHLORIDE 0.9% 10ML VIAL ONE (12:21)
[2018-05-22] MEDS: CEFTRIAXONE 1 G PREMIX 50 ML IV SCH ×2 (14:30→17:25)
[2018-05-22] MEDS: METRONIDAZOLE 500 MG PREMIX 100 ML IV SCH ×2 (14:55→17:25)
[2018-05-22] MEDS ORDERED: MIDAZOLAM HCL 5 MG/5 ML VIAL IV PRN (15:41)
[2018-05-22] MEDS ORDERED: FENTANYL CITRATE/PF 50MCG/ML 2ML VIAL IV PRN (15:42)
[2018-05-22] MEDS ORDERED: MIDAZOLAM HCL 5 MG/5 ML VIAL ONE (15:49)
[2018-05-22] MEDS ORDERED: FENTANYL CITRATE/PF 50MCG/ML 2ML VIAL ONE (15:50)
[2018-05-22] MEDS: EPOETIN ALFA 4000UNITS/ML VIAL SUBCUT SCH (20:52)
[2018-05-22] MEDS: PANTOPRAZOLE SODIUM 40 MG/VIAL IV SCH (20:53)
[2018-05-22] MEDS: ATORVASTATIN CALCIUM 20MG TABLET PO SCH (20:53)
[2018-05-23] VITALS (12 sets, daily range): BP systolic 106–165; BP diastolic 41–83
[2018-05-23] MEDS: IPRATROPIUM/ALBUTEROL 0.5-3(2.5)MG/3ML NEB HHN SCH ×6 (00:35→20:26)
[2018-05-23] MEDS: WATER IV SCH ×2 (01:25→21:21)
[2018-05-23] MEDS: DEXT IV SCH ×2 (01:25→21:21)
[2018-05-23] MEDS: DEXTROSE IV SCH ×2 (01:25→21:21)
[2018-05-23] MEDS: NACL IV SCH ×2 (01:25→21:21)
[2018-05-23] MEDS: BLOOD SUGAR DIAGNOSTIC STRIP TEST SCH ×4 (06:20→21:22)
[2018-05-23] MEDS: METOCLOPRAMIDE HCL 10MG/2ML VIAL IV SCH ×3 (06:24→18:26)
[2018-05-23] MEDS: METRONIDAZOLE 500 MG PREMIX 100 ML IV SCH ×2 (06:24→18:40)
[2018-05-23 08:03] LABS: PHOSPHORUS 4.3 mg/dL (2.5-4.9)
[2018-05-23 08:35] LABS: BASOPHILS % 0.5 % (0.0-2.0); EOSINOPHILS % 0.9 % (0.0-5.0); HEMATOCRIT. 24.9 % (36.0-48.0); HEMOGLOBIN. 8.2 g/dL (12.0-16.0); LYMPHOCYTES % 14.1 % (20.0-50.0); MEAN CORPUSCULAR HEMOGLOBIN 27.6 pg (28.0-32.0); MEAN CORPUSCULAR VOLUME 83.6 fL (81.0-99.0); MEAN PLATELET VOLUME 9.4 fl (7.4-10.4); MONOCYTES % 6.8 % (2.0-8.0); NEUTROPHILS % 77.7 % (40.0-76.0); PLATELET 103 x1000/uL (130-400); RED BLOOD CELL COUNT 2.98 mill/uL (4.2-5.4); RED CELL DISTRIBUTION WIDTH 15.4 % (11.6-14.6)
[2018-05-23] MEDS: AMIODARONE HCL 200 MG TABLET PO SCH ×2 (08:49→21:22)
[2018-05-23] MEDS: CARVEDILOL 3.125 MG TABLET PO SCH (08:50)
[2018-05-23] MEDS: PANTOPRAZOLE SODIUM 40 MG/VIAL IV SCH (08:50)
[2018-05-23] MEDS: CEFTRIAXONE 1 G PREMIX 50 ML IV SCH (13:18)
[2018-05-23] MEDS: CARVEDILOL 6.25 MG TABLET PO SCH (21:22)
[2018-05-23] MEDS: ATORVASTATIN CALCIUM 20MG TABLET PO SCH (21:22)
[2018-05-24] VITALS (13 sets, daily range): BP systolic 111–194; BP diastolic 53–84
[2018-05-24] MEDS: IPRATROPIUM/ALBUTEROL 0.5-3(2.5)MG/3ML NEB HHN SCH ×6 (00:50→20:25)
[2018-05-24] MEDS: METOCLOPRAMIDE HCL 10MG/2ML VIAL IV SCH ×2 (03:19→06:34)
[2018-05-24] MEDS: METRONIDAZOLE 500 MG PREMIX 100 ML IV SCH ×2 (05:55→18:43)
[2018-05-24] MEDS: BLOOD SUGAR DIAGNOSTIC STRIP TEST SCH (06:34)
[2018-05-24] MEDS: OMEPRAZOLE 20MG CAPSULE EXTENDED RELEASE PO SCH (06:34)
[2018-05-24 07:39] LABS: CHLORIDE 102 mEq/L (98-107); HEMATOCRIT. 25.6 % (36.0-48.0); HEMOGLOBIN. 8.6 g/dL (12.0-16.0); MEAN CORPUSCULAR HEMOGLOBIN 27.7 pg (28.0-32.0); MEAN PLATELET VOLUME 8.8 fl (7.4-10.4); PLATELET 123 x1000/uL (130-400); RED BLOOD CELL COUNT 3.09 mill/uL (4.2-5.4); RED CELL DISTRIBUTION WIDTH 15.4 % (11.6-14.6)
[2018-05-24 07:48] LABS: PHOSPHORUS 4.5 mg/dL (2.5-4.9)
[2018-05-24] MEDS ORDERED: LOSARTAN POTASSIUM 50 MG TABLET PO SCH (09:00)
[2018-05-24] MEDS: CARVEDILOL 6.25 MG TABLET PO SCH ×2 (09:10→21:08)
[2018-05-24] MEDS: AMIODARONE HCL 200 MG TABLET PO SCH (09:10)
[2018-05-24 10:35] LABS: TOTAL IRON BINDING CAPACITY 111 ug/dL (250-450)
[2018-05-24] MEDS: METOCLOPRAMIDE HCL 5MG TABLET PO SCH ×3 (11:47→21:08)
[2018-05-24] MEDS: AMLODIPINE 5MG TABLET PO SCH ×2 (11:50→21:09)
[2018-05-24] MEDS ORDERED: LIDOCAINE HCL/EPINEPHRINE 1%-EPI 1:100,000 30 ML VIAL INFIL SCH (13:00)
[2018-05-24] MEDS: CEFTRIAXONE 1 G PREMIX 50 ML IV SCH (14:30)
[2018-05-24 14:41] LABS: PLATELET ESTIMATE SLIGHTLY DECREASED
[2018-05-24] MEDS ORDERED: EPOE40007 SUBCUT (16:38)
[2018-05-24] MEDS ORDERED: AMLO5TAB88 PO (16:38)
[2018-05-24] MEDS ORDERED: METR500T IV (16:38)
[2018-05-24] MEDS ORDERED: COR6 PO (16:38)
[2018-05-24] MEDS ORDERED: AMI2 PO (16:38)
[2018-05-24] MEDS ORDERED: ATOR20TA PO (16:38)
[2018-05-24] MEDS ORDERED: LOSA50TA3 PO (16:38)
[2018-05-24] MEDS ORDERED: CEFT1VIA15 IV (16:38)
[2018-05-24] MEDS ORDERED: AMLODIPINE 2.5MG TABLET PO SCH (21:00)
[2018-05-24] MEDS: ATORVASTATIN CALCIUM 20MG TABLET PO SCH (21:08)
[2018-05-24] MEDS: EPOETIN ALFA 4000UNITS/ML VIAL SUBCUT SCH (21:09)
[2018-05-24] MEDS: LOSARTAN POTASSIUM 50 MG TABLET PO SCH (21:15)
[2018-05-25] VITALS (15 sets, daily range): BP systolic 125–158; BP diastolic 36–82
[2018-05-25] MEDS: IPRATROPIUM/ALBUTEROL 0.5-3(2.5)MG/3ML NEB HHN SCH ×5 (00:19→15:53)
[2018-05-25] MEDS: METOCLOPRAMIDE HCL 5MG TABLET PO SCH ×2 (05:52→12:03)
[2018-05-25] MEDS: METRONIDAZOLE 500 MG PREMIX 100 ML IV SCH (05:52)
[2018-05-25] MEDS: OMEPRAZOLE 20MG CAPSULE EXTENDED RELEASE PO SCH (05:52)
[2018-05-25] MEDS: AMLODIPINE 5MG TABLET PO SCH (08:22)
[2018-05-25] MEDS: AMIODARONE HCL 200 MG TABLET PO SCH (08:22)
[2018-05-25] MEDS: CARVEDILOL 6.25 MG TABLET PO SCH (08:22)
[2018-05-25] MEDS: LOSARTAN POTASSIUM 50 MG TABLET PO SCH (09:36)
[2018-05-25] MEDS: CEFTRIAXONE 1 G PREMIX 50 ML IV SCH (14:49)
== END 2018-05-25 16:15 | DRG 871 ==
LOC: ER 10:07 → 3WST 12:14 → OBSVTOIN 12:14 → EDBEDREQ 12:26 → ENRESERV 14:00 → CVICU 05-16 17:55 → 3WST 05-20 03:00
PROVIDERS: ADMIT Family Medicine; ATTEND Family Medicine
PROC: 5A1D70Z Performance of Urinary Filtration, Intermittent, Less than 6 Hours Per Day (ICD-10-PCS; 2018-05-14)
PROC: 5A1D70Z Performance of Urinary Filtration, Intermittent, Less than 6 Hours Per Day (ICD-10-PCS; 2018-05-15)
PROC: 5A1D70Z Performance of Urinary Filtration, Intermittent, Less than 6 Hours Per Day (ICD-10-PCS; 2018-05-16)
PROC: 5A09457 Assistance with Respiratory Ventilation, 24-96 Consecutive Hours, Continuous Positive Airway Pressure (ICD-10-PCS; 2018-05-17)
PROC: 02HV33Z Insertion of Infusion Device into Superior Vena Cava, Percutaneous Approach (ICD-10-PCS; 2018-05-17)
PROC: B5181ZA Fluoroscopy of Superior Vena Cava using Low Osmolar Contrast, Guidance (ICD-10-PCS; 2018-05-17)
PROC: B548ZZA Ultrasonography of Superior Vena Cava, Guidance (ICD-10-PCS; 2018-05-17)
PROC: 5A1D70Z Performance of Urinary Filtration, Intermittent, Less than 6 Hours Per Day (ICD-10-PCS; 2018-05-18)
PROC: 5A1D70Z Performance of Urinary Filtration, Intermittent, Less than 6 Hours Per Day (ICD-10-PCS; 2018-05-21)
PROC: 30233N1 Transfusion of Nonautologous Red Blood Cells into Peripheral Vein, Percutaneous Approach (ICD-10-PCS; 2018-05-22)
PROC: 06HY33Z Insertion of Infusion Device into Lower Vein, Percutaneous Approach (ICD-10-PCS; 2018-05-22)
PROC: B54BZZA Ultrasonography of Right Lower Extremity Veins, Guidance (ICD-10-PCS; 2018-05-22)
PROC: 0DJ08ZZ Inspection of Upper Intestinal Tract, Via Natural or Artificial Opening Endoscopic (ICD-10-PCS; principal; 2018-05-22 17:00)
PROC: 5A1D70Z Performance of Urinary Filtration, Intermittent, Less than 6 Hours Per Day (ICD-10-PCS; 2018-05-23)
DX: A41.59 Other Gram-negative sepsis (principal); E43 Unspecified severe protein-calorie malnutrition; N18.6 End stage renal disease; J96.02 Acute respiratory failure with hypercapnia; J15.0 Pneumonia due to Klebsiella pneumoniae; K57.91 Diverticulosis of intestine, part unspecified, without perforation or abscess with bleeding; K57.93 Diverticulitis of intestine, part unspecified, without perforation or abscess with bleeding; E87.1 Hypo-osmolality and hyponatremia; N25.81 Secondary hyperparathyroidism of renal origin; K81.0 Acute cholecystitis; I13.2 Hypertensive heart and chronic kidney disease with heart failure and with stage 5 chronic kidney disease, or end stage renal disease; I82.722 Chronic embolism and thrombosis of deep veins of left upper extremity; I82.C21 Chronic embolism and thrombosis of right internal jugular vein; Q61.2 Polycystic kidney, adult type; I95.9 Hypotension, unspecified; I48.0 Paroxysmal atrial fibrillation; L89.150 Pressure ulcer of sacral region, unstageable; B96.1 Klebsiella pneumoniae [K. pneumoniae] as the cause of diseases classified elsewhere; D25.9 Leiomyoma of uterus, unspecified; D63.1 Anemia in chronic kidney disease; D69.6 Thrombocytopenia, unspecified; E03.9 Hypothyroidism, unspecified; E11.22 Type 2 diabetes mellitus with diabetic chronic kidney disease; E11.649 Type 2 diabetes mellitus with hypoglycemia without coma; E66.9 Obesity, unspecified; E78.00 Pure hypercholesterolemia, unspecified; E78.5 Hyperlipidemia, unspecified; I50.9 Heart failure, unspecified; J45.909 Unspecified asthma, uncomplicated; K21.9 Gastro-esophageal reflux disease without esophagitis; K76.89 Other specified diseases of liver; M19.90 Unspecified osteoarthritis, unspecified site; R74.0 Nonspecific elevation of levels of transaminase and lactic acid dehydrogenase [LDH]; K82.8 Other specified diseases of gallbladder; M48.061 Spinal stenosis, lumbar region without neurogenic claudication; Z68.31 Body mass index [BMI] 31.0-31.9, adult; Z82.49 Family history of ischemic heart disease and other diseases of the circulatory system; Z99.2 Dependence on renal dialysis
CPT/HCPCS: 36415; 36569; 36600; 70450; 71045; 74176; 76700; 76857; 76937; 78227; 78806; 80048; 80051; 80053; 80061; 80076; 80202; 82375; 82533; 82550; 82553; 82728; 82805; 82962; 83036; 83540; 83550; 83605; 83735; 83880; 84100; 84134; 84443; 84450; 84460; 84484; 85025; 85379; 85610; 86677; 86850; 86900; 86920; 87040; 87077; 87186; 92610; 93005; 93306; 93970; 93971; 94002; 94640; 94660; 96365; 96367; 96375; 97163; 99285; A4216; A9537; A9547; C1725; C9113; J0282; J0360; J0690; J0696; J0885; J1160; J1170; J1200; J1650; J1815; J1885; J1956; J2250; J2270; J2405; J2543; J2765; J3010; J3370; J3490; J7030; J7040; J7042; J7050; J7060; J7620; J8597; P9016

== ENCOUNTER 2018-08-08 10:35 | Inpatient (IN) | payer MEDICARE, MEDICAID ==
[~2018-08-08] VITALS: Ht 170.2 cm; Wt 84.0 kg
[~2018-08-08 10:35] MED LIST changes: +AMI2 PO; +AMLO5TAB88 PO; +ATOR20TA PO; +CEFT1VIA15 IV; +COR6 PO; +EPOE40007 SUBCUT; +LOSA50TA3 PO; +METR500T IV
[2018-08-08] MEDS ORDERED: SODIUM CHLORIDE 0.9% 250 ML IV ONE (12:15)
[2018-08-08 12:48] LABS: BASOPHILS % 0.3 % (0.0-2.0); EOSINOPHILS % 0.2 % (0.0-5.0); HEMATOCRIT. 30.2 % (36.0-48.0); HEMOGLOBIN. 9.6 g/dL (12.0-16.0); MEAN CORPUSCULAR HEMOGLOBIN 24.4 pg (28.0-32.0); MEAN CORPUSCULAR VOLUME 76.7 fL (81.0-99.0); MEAN PLATELET VOLUME 8.6 fl (7.4-10.4); MONOCYTES % 6.3 % (2.0-8.0); NEUTROPHILS % 78.2 % (40.0-76.0); PLATELET 182 x1000/uL (130-400); RED BLOOD CELL COUNT 3.94 mill/uL (4.2-5.4); RED CELL DISTRIBUTION WIDTH 17.9 % (11.6-14.6)
[2018-08-08 12:55] LABS: CHLORIDE 90 mEq/L (98-107)
[2018-08-08 12:56] LABS: BG BASE EXCESS 6.4 mmol/L (-2.0-2.0); BG CARBOXYHEMOGLOBIN 0.7 % (0.5-1.5); BG DEOXYHEMOGLOBIN 10.8 % (0.0-5.0); BG FRACTION INSPIRED OXYGEN 21; BG HCO3 ACT 30.7 mmol/L (22.0-26.0); BG METHEMOGLOBIN 0.3 % (0.0-1.5); BG OXYGEN SATURATION 89.1 % (92.0-98.5); BG OXYHEMOGLOBIN 88.2 % (94.0-97.0); BG PCO2 42.7 mmHg (35.0-45.0); BG PH 7.474 (7.350-7.450); BG PO2 55.5 mmHg (75.0-100.0); BG SAMPLE SITE LEFT BRACHIAL; BG TOTAL HEMOGLOBIN 10.1 g/dL (12.0-18.0); BG VENT MODE ROOM AIR
[2018-08-08] MEDS ORDERED: LIDOCAINE HCL/PF 1% 2ML VIAL ONE (14:01)
[2018-08-08] MEDS ORDERED: SODIUM CHLORIDE 0.9% 1,000 ML IV SCH (15:09)
[2018-08-08] MEDS ORDERED: DOPAMINE 400MG PREMIX 250 ML IV ONE (15:15)
[2018-08-08] MEDS ORDERED: ONDANSETRON HCL 4MG/2ML INJ IV PRN (15:15)
[2018-08-08 16:00] VITALS: BP 89/44
[2018-08-08] MEDS ORDERED: SEVE800T8 PO ×2 (16:28→17:11)
[2018-08-08] MEDS ORDERED: AMPICILLIN SOD/SULBACTAM NA 1.5 G in SODIUM CHLORIDE 0.9% 50 ML IV SCH (17:00)
[2018-08-08] MEDS ORDERED: TOBR5DRO47 EACHEYE (17:11)
[2018-08-08] MEDS ORDERED: FAMO20TA8 PO (17:11)
[2018-08-08] MEDS ORDERED: DOCU-138 PO (17:11)
[2018-08-08] MEDS ORDERED: DICL100G31 TP (17:11)
[2018-08-08] MEDS ORDERED: AMBR5TAB3 PO (17:11)
[2018-08-08] MEDS ORDERED: DICL2.5D8 EACHEYE (17:11)
[2018-08-08] MEDS ORDERED: CYCL30DR EACHEYE (17:11)
[2018-08-08] MEDS ORDERED: AMLO1TAB36 PO (17:11)
[2018-08-08] MEDS: DEXT 5%/0.9% NACL 1,000 ML IV SCH (18:29)
[2018-08-08] MEDS: DOCUSATE SODIUM 100MG CAPSULE PO SCH (18:31)
[2018-08-08] MEDS: ACETAMINOPHEN 650MG/20.3ML UDC GT PRN (18:31)
[2018-08-08 20:00] VITALS: BP 102/45
[2018-08-08] MEDS: MEROPENEM 1,000 MG in SODIUM CHLORIDE 0.9% 100 ML IV SCH (21:30)
[2018-08-08] MEDS ORDERED: VANCOMYCIN 1500MG in DEXTROSE 5% WATER 250ML IV NR (21:30)
[2018-08-08] MEDS: ATORVASTATIN CALCIUM 10MG TABLET PO SCH (21:37)
[2018-08-09] VITALS: BP 110/51
[2018-08-09] MEDS: DEXT 5%/0.9% NACL 1,000 ML IV SCH ×2 (01:45→14:23)
[2018-08-09 04:00] VITALS: BP 105/55
[2018-08-09 07:47] VITALS: BP 124/52
[2018-08-09 08:19] LABS: CHLORIDE 97 mEq/L (98-107); HEMATOCRIT. 28.3 % (36.0-48.0); HEMOGLOBIN. 8.9 g/dL (12.0-16.0); MEAN CORPUSCULAR HEMOGLOBIN 24.5 pg (28.0-32.0); MEAN CORPUSCULAR VOLUME 77.5 fL (81.0-99.0); PLATELET 171 x1000/uL (130-400); RED BLOOD CELL COUNT 3.65 mill/uL (4.2-5.4); RED CELL DISTRIBUTION WIDTH 17.9 % (11.6-14.6)
[2018-08-09 08:34] LABS: PHOSPHORUS 1.9 mg/dL (2.5-4.9)
[2018-08-09] MEDS ORDERED: IPRATROPIUM/ALBUTEROL 0.5-3(2.5)MG/3ML NEB HHN PRN (08:45)
[2018-08-09] MEDS: PANTOPRAZOLE SODIUM 40 MG/VIAL IV SCH (08:53)
[2018-08-09] MEDS: DOCUSATE SODIUM 100MG CAPSULE PO SCH ×2 (08:53→17:00)
[2018-08-09] MEDS: FOLIC ACID/VITAMIN B COMP W-C TABLET PO SCH (08:54)
[2018-08-09 11:57] LABS: PLATELET ESTIMATE NORMAL
[2018-08-09] MEDS ORDERED: IPRATROPIUM/ALBUTEROL 0.5-3(2.5)MG/3ML NEB HHN SCH (12:00)
[2018-08-09 12:55] VITALS: BP 148/96
[2018-08-09] MEDS ORDERED: DIATR MEGLU/DIATRIZOATE SOLN 30ML PO SCH (13:45)
[2018-08-09] MEDS: AMIODARONE HCL 200 MG TABLET PO SCH (13:58)
[2018-08-09] MEDS ORDERED: VANCOMYCIN 750 MG PREMIX 150 ML IV SCH (14:00)
[2018-08-09 15:43] VITALS: BP 121/47
[2018-08-09] MEDS: IPRATROPIUM/ALBUTEROL 0.5-3(2.5)MG/3ML NEB HHN SCH (19:54)
[2018-08-09 20:00] VITALS: BP 101/59
[2018-08-09] MEDS: MEROPENEM 1,000 MG in SODIUM CHLORIDE 0.9% 100 ML IV SCH (20:07)
[2018-08-09] MEDS: ATORVASTATIN CALCIUM 10MG TABLET PO SCH (21:16)
[2018-08-09] MEDS: EPOETIN ALFA 4000UNITS/ML VIAL SUBCUT SCH (21:17)
[2018-08-10] VITALS (16 sets, daily range): BP systolic 92–120; BP diastolic 41–98
[2018-08-10 07:39] LABS: HEMATOCRIT. 27.1 % (36.0-48.0); HEMOGLOBIN. 8.6 g/dL (12.0-16.0); MEAN CORPUSCULAR HEMOGLOBIN 24.6 pg (28.0-32.0); MEAN CORPUSCULAR VOLUME 77.3 fL (81.0-99.0); MEAN PLATELET VOLUME 8.7 fl (7.4-10.4); PLATELET 169 x1000/uL (130-400); RED BLOOD CELL COUNT 3.51 mill/uL (4.2-5.4); RED CELL DISTRIBUTION WIDTH 18.1 % (11.6-14.6)
[2018-08-10 08:15] LABS: CHLORIDE 94 mEq/L (98-107)
[2018-08-10] MEDS: DOCUSATE SODIUM 100MG CAPSULE PO SCH ×3 (08:29→17:00)
[2018-08-10] MEDS: PANTOPRAZOLE SODIUM 40 MG/VIAL IV SCH (08:29)
[2018-08-10] MEDS: FOLIC ACID/VITAMIN B COMP W-C TABLET PO SCH (08:30)
[2018-08-10] MEDS: AMIODARONE HCL 200 MG TABLET PO SCH (08:30)
[2018-08-10] MEDS: DEXT 5%/0.9% NACL 1,000 ML IV SCH (08:30)
[2018-08-10 08:37] LABS: PHOSPHORUS 2.9 mg/dL (2.5-4.9)
[2018-08-10 08:49] LABS: PLATELET ESTIMATE NORMAL
[2018-08-10 09:46] LABS: INR 1.4; PARTIAL THROMBOPLASTIN TIME 36.1 sec (23.4-31.0)
[2018-08-10] MEDS: IPRATROPIUM/ALBUTEROL 0.5-3(2.5)MG/3ML NEB HHN SCH ×3 (11:11→21:22)
[2018-08-10] MEDS ORDERED: IOHEXOL-300 50 ML BOTTLE IV ONE (14:21)
[2018-08-10] MEDS ORDERED: LIDOCAINE HCL 1% 20ML VIAL (Pyxis) INJ ONE (14:21)
[2018-08-10] MEDS ORDERED: SODIUM BICARBONATE 4% (2.4MEQ) 5ML VIAL IV ONE (14:21)
[2018-08-10] MEDS ORDERED: FENTANYL CITRATE/PF 50MCG/ML 2ML VIAL ONE (14:51)
[2018-08-10] MEDS ORDERED: FENTANYL CITRATE/PF 50MCG/ML 2ML VIAL IV ONE (15:15)
[2018-08-10] MEDS: ATORVASTATIN CALCIUM 10MG TABLET PO SCH (21:25)
[2018-08-10] MEDS: MEROPENEM 1,000 MG in SODIUM CHLORIDE 0.9% 100 ML IV SCH (21:25)
[2018-08-10] MEDS: ACETAMINOPHEN 650MG/20.3ML UDC GT PRN (21:26)
[2018-08-11] VITALS (7 sets, daily range): BP systolic 90–125; BP diastolic 37–52
[2018-08-11] MEDS: IPRATROPIUM/ALBUTEROL 0.5-3(2.5)MG/3ML NEB HHN SCH ×4 (01:08→20:40)
[2018-08-11 07:55] LABS: HEMATOCRIT. 27.6 % (36.0-48.0); HEMOGLOBIN. 8.8 g/dL (12.0-16.0); MEAN CORPUSCULAR HEMOGLOBIN 24.5 pg (28.0-32.0); MEAN CORPUSCULAR VOLUME 76.8 fL (81.0-99.0); PLATELET 178 x1000/uL (130-400); RED CELL DISTRIBUTION WIDTH 18.2 % (11.6-14.6)
[2018-08-11 09:03] LABS: CHLORIDE 94 mEq/L (98-107)
[2018-08-11 09:19] LABS: PHOSPHORUS 3.3 mg/dL (2.5-4.9)
[2018-08-11] MEDS ORDERED: MORPHINE SULFATE 4 MG/ML CPJ (NOT FOR IM USE) IV PRN (09:30)
[2018-08-11] MEDS: ACETAMINOPHEN 650MG/20.3ML UDC GT PRN (09:31)
[2018-08-11] MEDS: FAMOTIDINE 20MG/2ML VIAL IV SCH (09:31)
[2018-08-11] MEDS: FOLIC ACID/VITAMIN B COMP W-C TABLET PO SCH (09:31)
[2018-08-11] MEDS: AMIODARONE HCL 200 MG TABLET PO SCH (09:32)
[2018-08-11] MEDS: ENOXAPARIN 30MG/0.3ML SYR SUBCUT SCH (09:32)
[2018-08-11 12:38] LABS: PLATELET ESTIMATE NORMAL
[2018-08-11] MEDS: DOCUSATE SODIUM 100MG CAPSULE PO SCH (17:00)
[2018-08-11] MEDS: ATORVASTATIN CALCIUM 10MG TABLET PO SCH (20:25)
[2018-08-11] MEDS: MEROPENEM 1,000 MG in SODIUM CHLORIDE 0.9% 100 ML IV SCH (20:25)
[2018-08-11] MEDS: HYDROCODONE/ACETAMINOPHEN 5/325MG TABLET PO PRN (20:25)
[2018-08-11] MEDS: EPOETIN ALFA 4000UNITS/ML VIAL SUBCUT SCH (20:25)
[2018-08-12] VITALS: BP 95/44
[2018-08-12] MEDS: IPRATROPIUM/ALBUTEROL 0.5-3(2.5)MG/3ML NEB HHN SCH ×5 (01:42→23:44)
[2018-08-12 04:00] VITALS: BP 107/37
[2018-08-12 07:38] LABS: HEMATOCRIT. 29.8 % (36.0-48.0); HEMOGLOBIN. 9.2 g/dL (12.0-16.0); MEAN CORPUSCULAR HEMOGLOBIN 23.8 pg (28.0-32.0); MEAN CORPUSCULAR VOLUME 76.8 fL (81.0-99.0); MEAN PLATELET VOLUME 8.4 fl (7.4-10.4); PLATELET 198 x1000/uL (130-400); RED BLOOD CELL COUNT 3.88 mill/uL (4.2-5.4); RED CELL DISTRIBUTION WIDTH 18.5 % (11.6-14.6)
[2018-08-12 08:00] VITALS: BP 125/45
[2018-08-12 09:21] LABS: CHLORIDE 100 mEq/L (98-107)
[2018-08-12 09:29] LABS: PHOSPHORUS 3.3 mg/dL (2.5-4.9)
[2018-08-12] MEDS: FOLIC ACID/VITAMIN B COMP W-C TABLET PO SCH (10:17)
[2018-08-12] MEDS: FAMOTIDINE 20MG/2ML VIAL IV SCH (10:17)
[2018-08-12] MEDS: DOCUSATE SODIUM 100MG CAPSULE PO SCH ×2 (10:17→16:32)
[2018-08-12] MEDS: AMIODARONE HCL 200 MG TABLET PO SCH (10:17)
[2018-08-12] MEDS: ENOXAPARIN 30MG/0.3ML SYR SUBCUT SCH (10:18)
[2018-08-12 10:26] LABS: PLATELET ESTIMATE NORMAL
[2018-08-12 12:00] VITALS: BP 121/47
[2018-08-12 16:00] VITALS: BP 115/47
[2018-08-12 20:00] VITALS: BP 111/46
[2018-08-12] MEDS: MEROPENEM 1,000 MG in SODIUM CHLORIDE 0.9% 100 ML IV SCH (20:46)
[2018-08-12] MEDS: ATORVASTATIN CALCIUM 10MG TABLET PO SCH (20:46)
[2018-08-13] VITALS: BP 115/47
[2018-08-13] MEDS: IPRATROPIUM/ALBUTEROL 0.5-3(2.5)MG/3ML NEB HHN SCH ×3 (02:19→21:28)
[2018-08-13 04:00] VITALS: BP 109/48
[2018-08-13 07:22] LABS: BASOPHILS % 1.1 % (0.0-2.0); EOSINOPHILS % 1.2 % (0.0-5.0); HEMATOCRIT. 30.8 % (36.0-48.0); HEMOGLOBIN. 9.6 g/dL (12.0-16.0); LYMPHOCYTES % 15.5 % (20.0-50.0); MEAN CORPUSCULAR HEMOGLOBIN 23.9 pg (28.0-32.0); MEAN PLATELET VOLUME 8.5 fl (7.4-10.4); MONOCYTES % 14.5 % (2.0-8.0); NEUTROPHILS % 67.7 % (40.0-76.0); PLATELET 203 x1000/uL (130-400); RED CELL DISTRIBUTION WIDTH 18.6 % (11.6-14.6)
[2018-08-13 08:13] LABS: CHLORIDE 97 mEq/L (98-107)
[2018-08-13 08:17] LABS: PHOSPHORUS 3.7 mg/dL (2.5-4.9)
[2018-08-13] MEDS: FAMOTIDINE 20MG/2ML VIAL IV SCH (08:30)
[2018-08-13] MEDS: DOCUSATE SODIUM 100MG CAPSULE PO SCH ×2 (08:30→17:49)
[2018-08-13] MEDS: HYDROCODONE/ACETAMINOPHEN 5/325MG TABLET PO PRN (08:30)
[2018-08-13] MEDS: AMIODARONE HCL 200 MG TABLET PO SCH (08:30)
[2018-08-13] MEDS: FOLIC ACID/VITAMIN B COMP W-C TABLET PO SCH (08:30)
[2018-08-13] MEDS: ENOXAPARIN 30MG/0.3ML SYR SUBCUT SCH (08:31)
[2018-08-13 12:00] VITALS: BP 121/45
[2018-08-13 16:00] VITALS: BP 118/48
[2018-08-13 20:00] VITALS: BP 116/51
[2018-08-13] MEDS: MEROPENEM 1,000 MG in SODIUM CHLORIDE 0.9% 100 ML IV SCH (20:11)
[2018-08-13] MEDS: ATORVASTATIN CALCIUM 10MG TABLET PO SCH (20:11)
[2018-08-14] VITALS (7 sets, daily range): BP systolic 104–138; BP diastolic 39–53
[2018-08-14] MEDS: IPRATROPIUM/ALBUTEROL 0.5-3(2.5)MG/3ML NEB HHN SCH ×4 (02:20→21:10)
[2018-08-14 06:31] LABS: BASOPHILS % 0.9 % (0.0-2.0); EOSINOPHILS % 1.3 % (0.0-5.0); HEMATOCRIT. 29.9 % (36.0-48.0); HEMOGLOBIN. 9.5 g/dL (12.0-16.0); LYMPHOCYTES % 15.3 % (20.0-50.0); MEAN CORPUSCULAR HEMOGLOBIN 24.2 pg (28.0-32.0); MEAN CORPUSCULAR VOLUME 76.3 fL (81.0-99.0); MEAN PLATELET VOLUME 8.7 fl (7.4-10.4); MONOCYTES % 14.5 % (2.0-8.0); PLATELET 239 x1000/uL (130-400); RED BLOOD CELL COUNT 3.92 mill/uL (4.2-5.4); RED CELL DISTRIBUTION WIDTH 18.7 % (11.6-14.6)
[2018-08-14] MEDS: DOCUSATE SODIUM 100MG CAPSULE PO SCH ×2 (09:29→17:47)
[2018-08-14] MEDS: AMIODARONE HCL 200 MG TABLET PO SCH (09:29)
[2018-08-14] MEDS: FOLIC ACID/VITAMIN B COMP W-C TABLET PO SCH (09:29)
[2018-08-14] MEDS: ENOXAPARIN 30MG/0.3ML SYR SUBCUT SCH (09:29)
[2018-08-14 09:51] LABS: CHLORIDE 97 mEq/L (98-107)
[2018-08-14 10:01] LABS: PHOSPHORUS 4.7 mg/dL (2.5-4.9)
[2018-08-14] MEDS ORDERED: MEROPENEM 1,000 MG in SODIUM CHLORIDE 0.9% 100 ML IV SCH (20:00)
[2018-08-14] MEDS: ATORVASTATIN CALCIUM 10MG TABLET PO SCH (20:38)
[2018-08-14] MEDS ORDERED: EPOETIN ALFA 4000UNITS/ML VIAL SUBCUT SCH (21:00)
[2018-08-14] MEDS ORDERED: FAMOTIDINE 20MG TABLET PO SCH (21:00)
== END 2018-08-14 22:33 | DRG 871 ==
LOC: ER 13:02 → 8WST 13:43 → ENRESERV 14:03
PROVIDERS: ADMIT Internal Medicine; ATTEND Internal Medicine
PROC: 5A1D70Z Performance of Urinary Filtration, Intermittent, Less than 6 Hours Per Day (ICD-10-PCS; principal; 2018-08-09)
PROC: 0F9430Z Drainage of Gallbladder with Drainage Device, Percutaneous Approach (ICD-10-PCS; 2018-08-10)
PROC: 5A1D70Z Performance of Urinary Filtration, Intermittent, Less than 6 Hours Per Day (ICD-10-PCS; 2018-08-11)
PROC: 5A1D70Z Performance of Urinary Filtration, Intermittent, Less than 6 Hours Per Day (ICD-10-PCS; 2018-08-14)
DX: A41.51 Sepsis due to Escherichia coli [E. coli] (principal); N18.6 End stage renal disease; E43 Unspecified severe protein-calorie malnutrition; G92 Toxic encephalopathy; J18.9 Pneumonia, unspecified organism; J96.00 Acute respiratory failure, unspecified whether with hypoxia or hypercapnia; E87.1 Hypo-osmolality and hyponatremia; E87.4 Mixed disorder of acid-base balance; J98.11 Atelectasis; L02.31 Cutaneous abscess of buttock; N25.81 Secondary hyperparathyroidism of renal origin; Q61.3 Polycystic kidney, unspecified; I47.2 Ventricular tachycardia; I95.9 Hypotension, unspecified; Z68.29 Body mass index [BMI] 29.0-29.9, adult; L89.150 Pressure ulcer of sacral region, unstageable; D63.8 Anemia in other chronic diseases classified elsewhere; E03.9 Hypothyroidism, unspecified; E11.22 Type 2 diabetes mellitus with diabetic chronic kidney disease; E66.9 Obesity, unspecified; E78.00 Pure hypercholesterolemia, unspecified; E78.5 Hyperlipidemia, unspecified; E83.39 Other disorders of phosphorus metabolism; E11.42 Type 2 diabetes mellitus with diabetic polyneuropathy; G89.29 Other chronic pain; I25.10 Atherosclerotic heart disease of native coronary artery without angina pectoris; I27.20 Pulmonary hypertension, unspecified; K57.90 Diverticulosis of intestine, part unspecified, without perforation or abscess without bleeding; M19.90 Unspecified osteoarthritis, unspecified site; I11.0 Hypertensive heart disease with heart failure; I48.0 Paroxysmal atrial fibrillation; I50.9 Heart failure, unspecified; J45.909 Unspecified asthma, uncomplicated; K21.9 Gastro-esophageal reflux disease without esophagitis; K81.9 Cholecystitis, unspecified; L89.159 Pressure ulcer of sacral region, unspecified stage; R13.10 Dysphagia, unspecified; Z66 Do not resuscitate; Z82.49 Family history of ischemic heart disease and other diseases of the circulatory system; Z83.3 Family history of diabetes mellitus; Z86.718 Personal history of other venous thrombosis and embolism; Z87.01 Personal history of pneumonia (recurrent); Z99.2 Dependence on renal dialysis; Z79.899 Other long term (current) drug therapy
CPT/HCPCS: 36415; 36600; 47490; 71045; 74176; 76700; 78227; 80048; 80053; 82375; 82805; 82962; 83605; 83735; 84100; 84134; 84443; 84484; 85025; 85610; 85651; 85730; 87040; 87077; 87186; 93005; 94640; 96365; 97162; 97166; 97530; 99152; 99153; 99291; A9537; C1769; C9113; J0295; J0885; J1650; J2185; J3010; J3370; J3490; J7030; J7040; J7042; J7050; J7060; J7620; Q9963; Q9967

== ENCOUNTER 2018-08-14 22:30 | Inpatient (IN) | payer MEDICARE, MEDICAID ==
[~2018-08-14] VITALS: Ht 170.2 cm; Wt 84.0 kg
[~2018-08-14 22:30] MED LIST changes: +AMBR5TAB3 PO; +AMLO1TAB36 PO; +CYCL30DR EACHEYE; +DICL100G31 TP; +DICL2.5D8 EACHEYE; +DOCU-138 PO; +FAMO20TA8 PO; +TOBR5DRO47 EACHEYE
[2018-08-14 22:50] VITALS: BP 100/49
[2018-08-15] MEDS ORDERED: IPRATROPIUM BROMIDE (0.02%) 0.5MG/2.5ML NEB ONE (01:28)
[2018-08-15] MEDS ORDERED: IPRATROPIUM/ALBUTEROL 0.5-3(2.5)MG/3ML NEB ONE (01:29)
[2018-08-15] MEDS ORDERED: HYDROCODONE/ACETAMINOPHEN 5/325MG TABLET PO PRN (01:30)
[2018-08-15] MEDS ORDERED: MORPHINE SULFATE 4 MG/ML CPJ (NOT FOR IM USE) IV PRN (01:30)
[2018-08-15] MEDS ORDERED: IPRATROPIUM/ALBUTEROL 0.5-3(2.5)MG/3ML NEB HHN PRN (01:30)
[2018-08-15] MEDS ORDERED: ACETAMINOPHEN 650MG/20.3ML UDC PO PRN (01:30)
[2018-08-15] MEDS: IPRATROPIUM/ALBUTEROL 0.5-3(2.5)MG/3ML NEB HHN SCH ×4 (01:39→19:46)
[2018-08-15 01:51] VITALS: BP 100/49
[2018-08-15 05:13] VITALS: BP 11/62
[2018-08-15 07:59] LABS: HEMATOCRIT. 30.5 % (36.0-48.0); HEMOGLOBIN. 9.6 g/dL (12.0-16.0); MEAN CORPUSCULAR HEMOGLOBIN 23.9 pg (28.0-32.0); MEAN CORPUSCULAR VOLUME 76.2 fL (81.0-99.0); MEAN PLATELET VOLUME 8.3 fl (7.4-10.4); PLATELET 218 x1000/uL (130-400); RED BLOOD CELL COUNT 4.01 mill/uL (4.2-5.4); RED CELL DISTRIBUTION WIDTH 18.2 % (11.6-14.6)
[2018-08-15 08:00] VITALS: BP 92/37
[2018-08-15] MEDS: AMIODARONE HCL 200 MG TABLET PO SCH (09:00)
[2018-08-15] MEDS: MEROPENEM 1,000 MG in SODIUM CHLORIDE 0.9% 100 ML IV SCH (09:27)
[2018-08-15] MEDS: ENOXAPARIN 30MG/0.3ML SYR SUBCUT SCH (09:28)
[2018-08-15] MEDS: FOLIC ACID/VITAMIN B COMP W-C TABLET PO SCH (09:29)
[2018-08-15] MEDS: DOCUSATE SODIUM 100MG CAPSULE PO SCH ×2 (09:33→17:00)
[2018-08-15 14:21] LABS: PLATELET ESTIMATE NORMAL
[2018-08-15 20:00] VITALS: BP 118/47
[2018-08-15] MEDS: ATORVASTATIN CALCIUM 10MG TABLET PO SCH (21:12)
[2018-08-15] MEDS: FAMOTIDINE 20MG TABLET PO SCH (21:13)
[2018-08-16] MEDS: IPRATROPIUM/ALBUTEROL 0.5-3(2.5)MG/3ML NEB HHN SCH ×4 (01:53→20:31)
[2018-08-16] MEDS: ONDANSETRON HCL 4MG/2ML INJ IV PRN ×2 (04:45→09:16)
[2018-08-16 07:23] LABS: BASOPHILS % 1.1 % (0.0-2.0); EOSINOPHILS % 1.1 % (0.0-5.0); MEAN CORPUSCULAR VOLUME 76.4 fL (81.0-99.0); MEAN PLATELET VOLUME 8.5 fl (7.4-10.4); MONOCYTES % 13.5 % (2.0-8.0); NEUTROPHILS % 65.3 % (40.0-76.0); PLATELET 228 x1000/uL (130-400); RED BLOOD CELL COUNT 4.19 mill/uL (4.2-5.4); RED CELL DISTRIBUTION WIDTH 18.9 % (11.6-14.6)
[2018-08-16 07:34] LABS: CHLORIDE 101 mEq/L (98-107)
[2018-08-16 07:53] LABS: PHOSPHORUS 5.1 mg/dL (2.5-4.9)
[2018-08-16 08:15] VITALS: BP 111/49
[2018-08-16] MEDS: AMIODARONE HCL 200 MG TABLET PO SCH (08:20)
[2018-08-16] MEDS: DOCUSATE SODIUM 100MG CAPSULE PO SCH ×2 (08:20→17:00)
[2018-08-16] MEDS: FOLIC ACID/VITAMIN B COMP W-C TABLET PO SCH (08:20)
[2018-08-16] MEDS: ENOXAPARIN 30MG/0.3ML SYR SUBCUT SCH (08:21)
[2018-08-16] MEDS: MEROPENEM 1,000 MG in SODIUM CHLORIDE 0.9% 100 ML IV SCH (09:16)
[2018-08-16 20:00] VITALS: BP 107/46
[2018-08-16] MEDS: MEROPENEM 500 MG in SODIUM CHLORIDE 0.9% 50 ML IV SCH (22:03)
[2018-08-16] MEDS: ATORVASTATIN CALCIUM 10MG TABLET PO SCH (22:04)
[2018-08-16] MEDS: FAMOTIDINE 20MG TABLET PO SCH (22:04)
[2018-08-16] MEDS: EPOETIN ALFA 4000UNITS/ML VIAL SUBCUT SCH (22:04)
[2018-08-17] MEDS: IPRATROPIUM/ALBUTEROL 0.5-3(2.5)MG/3ML NEB HHN SCH ×4 (01:22→20:38)
[2018-08-17 06:58] LABS: BASOPHILS % 1.1 % (0.0-2.0); EOSINOPHILS % 1.3 % (0.0-5.0); HEMATOCRIT. 30.7 % (36.0-48.0); HEMOGLOBIN. 9.5 g/dL (12.0-16.0); MEAN CORPUSCULAR HEMOGLOBIN 23.5 pg (28.0-32.0); MEAN CORPUSCULAR VOLUME 76.1 fL (81.0-99.0); MEAN PLATELET VOLUME 8.6 fl (7.4-10.4); MONOCYTES % 11.4 % (2.0-8.0); NEUTROPHILS % 66.2 % (40.0-76.0); PLATELET 217 x1000/uL (130-400); RED BLOOD CELL COUNT 4.03 mill/uL (4.2-5.4); RED CELL DISTRIBUTION WIDTH 18.4 % (11.6-14.6)
[2018-08-17 07:37] LABS: FOLIC ACID (FOLATE) SERUM 17.1 ng/mL (>5.38)
[2018-08-17 08:00] VITALS: BP_SYST 100; BP_SYST 92; BP_DIAS 45
[2018-08-17 08:05] LABS: CHLORIDE 100 mEq/L (98-107)
[2018-08-17 08:18] LABS: PHOSPHORUS 4.6 mg/dL (2.5-4.9); TOTAL IRON BINDING CAPACITY 124 ug/dL (250-450)
[2018-08-17] MEDS: FOLIC ACID/VITAMIN B COMP W-C TABLET PO SCH (09:14)
[2018-08-17] MEDS: DOCUSATE SODIUM 100MG CAPSULE PO SCH ×2 (09:15→17:31)
[2018-08-17] MEDS: ENOXAPARIN 30MG/0.3ML SYR SUBCUT SCH (09:15)
[2018-08-17] MEDS: AMIODARONE HCL 200 MG TABLET PO SCH (09:15)
[2018-08-17] MEDS ORDERED: SODIUM POLYSTYRENE SULFONATE 15 G/60 ML BOT PO SCH (11:00)
[2018-08-17] MEDS: MIDODRINE HCL 5MG TABLET PO SCH (17:32)
[2018-08-17 20:00] VITALS: BP 101/47
[2018-08-17] MEDS: MEROPENEM 500 MG in SODIUM CHLORIDE 0.9% 50 ML IV SCH (20:00)
[2018-08-17] MEDS: FAMOTIDINE 20MG TABLET PO SCH (20:01)
[2018-08-17] MEDS: ATORVASTATIN CALCIUM 10MG TABLET PO SCH (20:01)
[2018-08-18] MEDS: IPRATROPIUM/ALBUTEROL 0.5-3(2.5)MG/3ML NEB HHN SCH ×4 (01:37→20:00)
[2018-08-18 07:17] LABS: BASOPHILS % 0.7 % (0.0-2.0); HEMATOCRIT. 31.8 % (36.0-48.0); HEMOGLOBIN. 9.8 g/dL (12.0-16.0); MEAN CORPUSCULAR HEMOGLOBIN 23.9 pg (28.0-32.0); MEAN CORPUSCULAR VOLUME 77.3 fL (81.0-99.0); MEAN PLATELET VOLUME 8.4 fl (7.4-10.4); MONOCYTES % 8.6 % (2.0-8.0); NEUTROPHILS % 70.7 % (40.0-76.0); PLATELET 226 x1000/uL (130-400); RED BLOOD CELL COUNT 4.11 mill/uL (4.2-5.4); RED CELL DISTRIBUTION WIDTH 18.8 % (11.6-14.6)
[2018-08-18 08:00] VITALS: BP 114/46
[2018-08-18 08:21] LABS: PHOSPHORUS 5.9 mg/dL (2.5-4.9)
[2018-08-18] MEDS: FOLIC ACID/VITAMIN B COMP W-C TABLET PO SCH (09:46)
[2018-08-18] MEDS: MIDODRINE HCL 5MG TABLET PO SCH ×3 (09:46→17:34)
[2018-08-18] MEDS: AMIODARONE HCL 200 MG TABLET PO SCH (09:47)
[2018-08-18] MEDS: ENOXAPARIN 30MG/0.3ML SYR SUBCUT SCH (09:47)
[2018-08-18] MEDS: DOCUSATE SODIUM 100MG CAPSULE PO SCH ×2 (09:47→17:33)
[2018-08-18] MEDS: SEVELAMER CARBONATE 800 MG TABLET PO SCH (17:33)
[2018-08-18 20:00] VITALS: BP 111/58
[2018-08-18] MEDS ORDERED: IOHEXOL-300 100 ML BOTTLE ONE (20:10)
[2018-08-18] MEDS: ATORVASTATIN CALCIUM 10MG TABLET PO SCH (23:35)
[2018-08-18] MEDS: FAMOTIDINE 20MG TABLET PO SCH (23:36)
[2018-08-18] MEDS: EPOETIN ALFA 4000UNITS/ML VIAL SUBCUT SCH (23:37)
[2018-08-18] MEDS: MEROPENEM 500 MG in SODIUM CHLORIDE 0.9% 50 ML IV SCH (23:43)
[2018-08-19] MEDS: IPRATROPIUM/ALBUTEROL 0.5-3(2.5)MG/3ML NEB HHN SCH ×4 (02:41→20:50)
[2018-08-19 08:13] VITALS: BP 112/52
[2018-08-19] MEDS: ENOXAPARIN 30MG/0.3ML SYR SUBCUT SCH (09:00)
[2018-08-19] MEDS: SEVELAMER CARBONATE 800 MG TABLET PO SCH ×3 (09:00→17:48)
[2018-08-19] MEDS: AMIODARONE HCL 200 MG TABLET PO SCH (09:01)
[2018-08-19] MEDS: FOLIC ACID/VITAMIN B COMP W-C TABLET PO SCH (09:01)
[2018-08-19] MEDS: DOCUSATE SODIUM 100MG CAPSULE PO SCH ×2 (09:01→17:48)
[2018-08-19] MEDS: MIDODRINE HCL 5MG TABLET PO SCH ×3 (09:01→17:48)
[2018-08-19 20:00] VITALS: BP 104/46
[2018-08-19] MEDS: MEROPENEM 500 MG in SODIUM CHLORIDE 0.9% 50 ML IV SCH (20:20)
[2018-08-19] MEDS: ATORVASTATIN CALCIUM 10MG TABLET PO SCH (20:20)
[2018-08-19] MEDS: FAMOTIDINE 20MG TABLET PO SCH (20:20)
[2018-08-20] MEDS: IPRATROPIUM/ALBUTEROL 0.5-3(2.5)MG/3ML NEB HHN SCH ×4 (01:00→21:12)
[2018-08-20] MEDS ORDERED: HYDROCODONE/ACETAMINOPHEN 5/325MG TABLET PO PRN (05:45)
[2018-08-20 06:41] LABS: BASOPHILS % 1.9 % (0.0-2.0); EOSINOPHILS % 1.3 % (0.0-5.0); HEMATOCRIT. 31.6 % (36.0-48.0); HEMOGLOBIN. 9.8 g/dL (12.0-16.0); LYMPHOCYTES % 24.1 % (20.0-50.0); MEAN CORPUSCULAR HEMOGLOBIN 23.6 pg (28.0-32.0); MEAN CORPUSCULAR VOLUME 75.7 fL (81.0-99.0); MEAN PLATELET VOLUME 8.7 fl (7.4-10.4); MONOCYTES % 7.8 % (2.0-8.0); NEUTROPHILS % 64.9 % (40.0-76.0); PLATELET 266 x1000/uL (130-400); RED BLOOD CELL COUNT 4.18 mill/uL (4.2-5.4); RED CELL DISTRIBUTION WIDTH 18.5 % (11.6-14.6)
[2018-08-20 07:59] LABS: PHOSPHORUS 6.1 mg/dL (2.5-4.9)
[2018-08-20 08:11] VITALS: BP 112/46
[2018-08-20] MEDS: ENOXAPARIN 30MG/0.3ML SYR SUBCUT SCH (09:21)
[2018-08-20] MEDS: FOLIC ACID/VITAMIN B COMP W-C TABLET PO SCH (09:21)
[2018-08-20] MEDS: SEVELAMER CARBONATE 800 MG TABLET PO SCH ×3 (09:21→18:08)
[2018-08-20] MEDS: DOCUSATE SODIUM 100MG CAPSULE PO SCH ×2 (09:21→18:12)
[2018-08-20] MEDS: AMIODARONE HCL 200 MG TABLET PO SCH (09:21)
[2018-08-20] MEDS: MIDODRINE HCL 5MG TABLET PO SCH ×3 (09:22→18:12)
[2018-08-20] MEDS ORDERED: SEVELAMER CARBONATE 800 MG TABLET PO SCH (13:00)
[2018-08-20] MEDS ORDERED: LACTULOSE 20G/30ML UDC PO STA (13:01)
[2018-08-20 20:00] VITALS: BP 109/64
[2018-08-20] MEDS: ATORVASTATIN CALCIUM 10MG TABLET PO SCH (22:33)
[2018-08-20] MEDS: MEROPENEM 500 MG in SODIUM CHLORIDE 0.9% 50 ML IV SCH (22:33)
[2018-08-20] MEDS: FAMOTIDINE 20MG TABLET PO SCH (22:34)
[2018-08-20 23:59] VITALS: BP 107/62
[2018-08-21] MEDS: IPRATROPIUM/ALBUTEROL 0.5-3(2.5)MG/3ML NEB HHN SCH ×4 (02:03→21:15)
[2018-08-21 06:52] LABS: BASOPHILS % 1.3 % (0.0-2.0); EOSINOPHILS % 1.1 % (0.0-5.0); HEMATOCRIT. 31.6 % (36.0-48.0); LYMPHOCYTES % 22.3 % (20.0-50.0); MEAN CORPUSCULAR HEMOGLOBIN 23.8 pg (28.0-32.0); MEAN CORPUSCULAR VOLUME 75.5 fL (81.0-99.0); MEAN PLATELET VOLUME 8.8 fl (7.4-10.4); MONOCYTES % 6.7 % (2.0-8.0); NEUTROPHILS % 68.6 % (40.0-76.0); PLATELET 289 x1000/uL (130-400); RED BLOOD CELL COUNT 4.19 mill/uL (4.2-5.4); RED CELL DISTRIBUTION WIDTH 18.6 % (11.6-14.6)
[2018-08-21 07:42] LABS: PHOSPHORUS 7.7 mg/dL (2.5-4.9)
[2018-08-21 08:00] VITALS: BP 98/43
[2018-08-21] MEDS: DOCUSATE SODIUM 100MG CAPSULE PO SCH ×2 (08:36→16:51)
[2018-08-21] MEDS: SEVELAMER CARBONATE 800 MG TABLET PO SCH ×3 (08:36→16:51)
[2018-08-21] MEDS: FOLIC ACID/VITAMIN B COMP W-C TABLET PO SCH (08:36)
[2018-08-21] MEDS: AMIODARONE HCL 200 MG TABLET PO SCH (08:36)
[2018-08-21] MEDS: ENOXAPARIN 30MG/0.3ML SYR SUBCUT SCH (08:37)
[2018-08-21] MEDS: MIDODRINE HCL 5MG TABLET PO SCH ×3 (08:37→16:52)
[2018-08-21] MEDS: ONDANSETRON HCL 4MG/2ML INJ IV PRN (12:53)
[2018-08-21 13:41] VITALS: BP 106/49
[2018-08-21] MEDS: METOCLOPRAMIDE HCL 5MG TABLET PO SCH ×2 (16:52→22:23)
[2018-08-21] MEDS ORDERED: METOCLOPRAMIDE HCL 5MG TABLET PO SCH (17:00)
[2018-08-21 19:11] LABS: 25-HYDROXY VITAMIN D3 12 ng/mL (.)
[2018-08-21 20:00] VITALS: BP 115/41
[2018-08-21] MEDS: ATORVASTATIN CALCIUM 10MG TABLET PO SCH (22:12)
[2018-08-21] MEDS: MEROPENEM 500 MG in SODIUM CHLORIDE 0.9% 50 ML IV SCH (22:12)
[2018-08-21] MEDS: FAMOTIDINE 20MG TABLET PO SCH (22:13)
[2018-08-21] MEDS: EPOETIN ALFA 4000UNITS/ML VIAL SUBCUT SCH (22:14)
[2018-08-22] MEDS: IPRATROPIUM/ALBUTEROL 0.5-3(2.5)MG/3ML NEB HHN SCH ×4 (01:10→19:56)
[2018-08-22 04:15] LABS: CANCER ANTIGEN 125 34.7 U/mL (0.0-38.1)
[2018-08-22] MEDS: METOCLOPRAMIDE HCL 5MG TABLET PO SCH ×4 (05:46→21:17)
[2018-08-22 08:02] VITALS: BP 96/37
[2018-08-22] MEDS: SEVELAMER CARBONATE 800 MG TABLET PO SCH ×3 (08:38→17:18)
[2018-08-22] MEDS: DOCUSATE SODIUM 100MG CAPSULE PO SCH ×2 (08:38→17:18)
[2018-08-22] MEDS: FOLIC ACID/VITAMIN B COMP W-C TABLET PO SCH (08:38)
[2018-08-22] MEDS: AMIODARONE HCL 200 MG TABLET PO SCH (08:38)
[2018-08-22] MEDS: ENOXAPARIN 30MG/0.3ML SYR SUBCUT SCH (08:39)
[2018-08-22] MEDS: MIDODRINE HCL 5MG TABLET PO SCH ×3 (08:39→17:19)
[2018-08-22] MEDS ORDERED: MEROPENEM 500 MG in SODIUM CHLORIDE 0.9% 50 ML IV SCH ×2 (09:00→21:00)
[2018-08-22 20:00] VITALS: BP 109/43
[2018-08-22] MEDS: ATORVASTATIN CALCIUM 10MG TABLET PO SCH (21:17)
[2018-08-22] MEDS: FAMOTIDINE 20MG TABLET PO SCH (21:17)
[2018-08-23] MEDS: IPRATROPIUM/ALBUTEROL 0.5-3(2.5)MG/3ML NEB HHN SCH ×3 (00:22→21:52)
[2018-08-23] MEDS: METOCLOPRAMIDE HCL 5MG TABLET PO SCH ×3 (05:47→17:37)
[2018-08-23 07:19] LABS: BASOPHILS % 0.8 % (0.0-2.0); EOSINOPHILS % 1.1 % (0.0-5.0); HEMATOCRIT. 31.5 % (36.0-48.0); HEMOGLOBIN. 9.8 g/dL (12.0-16.0); LYMPHOCYTES % 21.1 % (20.0-50.0); MEAN CORPUSCULAR HEMOGLOBIN 23.6 pg (28.0-32.0); MEAN CORPUSCULAR VOLUME 75.9 fL (81.0-99.0); MEAN PLATELET VOLUME 8.7 fl (7.4-10.4); MONOCYTES % 8.2 % (2.0-8.0); NEUTROPHILS % 68.8 % (40.0-76.0); PLATELET 236 x1000/uL (130-400); RED BLOOD CELL COUNT 4.15 mill/uL (4.2-5.4); RED CELL DISTRIBUTION WIDTH 18.7 % (11.6-14.6)
[2018-08-23 08:00] VITALS: BP 91/43
[2018-08-23] MEDS: ENOXAPARIN 30MG/0.3ML SYR SUBCUT SCH (09:00)
[2018-08-23] MEDS: SEVELAMER CARBONATE 800 MG TABLET PO SCH ×3 (09:04→17:36)
[2018-08-23] MEDS: MIDODRINE HCL 5MG TABLET PO SCH ×3 (09:18→17:39)
[2018-08-23] MEDS: FOLIC ACID/VITAMIN B COMP W-C TABLET PO SCH (09:18)
[2018-08-23] MEDS: ZINC SULFATE 220 MG ( 50 ) CAPSULE PO SCH (09:19)
[2018-08-23] MEDS: DOCUSATE SODIUM 100MG CAPSULE PO SCH ×2 (09:19→17:36)
[2018-08-23] MEDS: AMIODARONE HCL 200 MG TABLET PO SCH (09:20)
[2018-08-23 09:55] LABS: CHLORIDE 96 mEq/L (98-107)
[2018-08-23 20:00] VITALS: BP 126/55
[2018-08-24] MEDS: EPOETIN ALFA 4000UNITS/ML VIAL SUBCUT SCH (01:10)
[2018-08-24] MEDS: METOCLOPRAMIDE HCL 5MG TABLET PO SCH ×5 (01:10→20:54)
[2018-08-24] MEDS: FAMOTIDINE 20MG TABLET PO SCH ×2 (01:10→20:54)
[2018-08-24] MEDS: ATORVASTATIN CALCIUM 10MG TABLET PO SCH ×2 (01:10→20:53)
[2018-08-24] MEDS: IPRATROPIUM/ALBUTEROL 0.5-3(2.5)MG/3ML NEB HHN SCH ×4 (02:29→20:50)
[2018-08-24 08:25] VITALS: BP 100/39
[2018-08-24] MEDS ORDERED: ZINC SULFATE 220 MG ( 50 ) CAPSULE PO SCH (09:00)
[2018-08-24] MEDS: ENOXAPARIN 30MG/0.3ML SYR SUBCUT SCH (09:34)
[2018-08-24] MEDS: SEVELAMER CARBONATE 800 MG TABLET PO SCH ×3 (09:35→18:02)
[2018-08-24] MEDS: DOCUSATE SODIUM 100MG CAPSULE PO SCH ×2 (09:35→18:03)
[2018-08-24] MEDS: FOLIC ACID/VITAMIN B COMP W-C TABLET PO SCH (09:35)
[2018-08-24] MEDS: AMIODARONE HCL 200 MG TABLET PO SCH (09:35)
[2018-08-24] MEDS: ZINC SULFATE 220 MG ( 50 ) CAPSULE PO SCH (09:35)
[2018-08-24] MEDS: MIDODRINE HCL 5MG TABLET PO SCH ×3 (09:36→18:03)
[2018-08-24 20:00] VITALS: BP 96/43
[2018-08-25] MEDS: IPRATROPIUM/ALBUTEROL 0.5-3(2.5)MG/3ML NEB HHN SCH ×3 (02:27→14:34)
[2018-08-25 06:30] LABS: EOSINOPHILS % 1.3 % (0.0-5.0); HEMATOCRIT. 31.4 % (36.0-48.0); HEMOGLOBIN. 9.9 g/dL (12.0-16.0); LYMPHOCYTES % 21.7 % (20.0-50.0); MEAN CORPUSCULAR VOLUME 76.2 fL (81.0-99.0); MEAN PLATELET VOLUME 8.9 fl (7.4-10.4); MONOCYTES % 8.4 % (2.0-8.0); NEUTROPHILS % 67.6 % (40.0-76.0); PLATELET 200 x1000/uL (130-400); RED BLOOD CELL COUNT 4.12 mill/uL (4.2-5.4); RED CELL DISTRIBUTION WIDTH 18.8 % (11.6-14.6)
[2018-08-25] MEDS: METOCLOPRAMIDE HCL 5MG TABLET PO SCH ×4 (06:53→22:49)
[2018-08-25 07:44] LABS: PHOSPHORUS 3.6 mg/dL (2.5-4.9)
[2018-08-25 08:00] VITALS: BP 81/35
[2018-08-25] MEDS: ENOXAPARIN 30MG/0.3ML SYR SUBCUT SCH (09:25)
[2018-08-25] MEDS: AMIODARONE HCL 200 MG TABLET PO SCH (09:25)
[2018-08-25] MEDS: SEVELAMER CARBONATE 800 MG TABLET PO SCH ×3 (09:26→18:03)
[2018-08-25] MEDS: FOLIC ACID/VITAMIN B COMP W-C TABLET PO SCH (09:26)
[2018-08-25] MEDS: DOCUSATE SODIUM 100MG CAPSULE PO SCH ×2 (09:26→18:02)
[2018-08-25] MEDS: ZINC SULFATE 220 MG ( 50 ) CAPSULE PO SCH (09:27)
[2018-08-25] MEDS: MIDODRINE HCL 5MG TABLET PO SCH ×3 (09:27→18:03)
[2018-08-25 20:00] VITALS: BP 84/41
[2018-08-25 22:00] VITALS: BP 105/46
[2018-08-25] MEDS: EPOETIN ALFA 4000UNITS/ML VIAL SUBCUT SCH (22:48)
[2018-08-25] MEDS: FAMOTIDINE 20MG TABLET PO SCH (22:48)
[2018-08-25] MEDS: ATORVASTATIN CALCIUM 10MG TABLET PO SCH (22:49)
[2018-08-26] MEDS: METOCLOPRAMIDE HCL 5MG TABLET PO SCH ×4 (06:46→20:21)
[2018-08-26 07:31] LABS: BASOPHILS % 1.3 % (0.0-2.0); EOSINOPHILS % 1.6 % (0.0-5.0); HEMATOCRIT. 33.5 % (36.0-48.0); HEMOGLOBIN. 10.4 g/dL (12.0-16.0); LYMPHOCYTES % 21.6 % (20.0-50.0); MEAN CORPUSCULAR HEMOGLOBIN 23.8 pg (28.0-32.0); MEAN PLATELET VOLUME 9.1 fl (7.4-10.4); MONOCYTES % 10.4 % (2.0-8.0); NEUTROPHILS % 65.1 % (40.0-76.0); PLATELET 197 x1000/uL (130-400); RED BLOOD CELL COUNT 4.36 mill/uL (4.2-5.4); RED CELL DISTRIBUTION WIDTH 18.9 % (11.6-14.6)
[2018-08-26 08:00] VITALS: BP 84/41
[2018-08-26] MEDS: DOCUSATE SODIUM 100MG CAPSULE PO SCH ×2 (09:02→17:20)
[2018-08-26] MEDS: SEVELAMER CARBONATE 800 MG TABLET PO SCH ×3 (09:02→17:20)
[2018-08-26] MEDS: FOLIC ACID/VITAMIN B COMP W-C TABLET PO SCH (09:03)
[2018-08-26] MEDS: ZINC SULFATE 220 MG ( 50 ) CAPSULE PO SCH (09:03)
[2018-08-26] MEDS: ENOXAPARIN 30MG/0.3ML SYR SUBCUT SCH (09:06)
[2018-08-26] MEDS: AMIODARONE HCL 200 MG TABLET PO SCH (09:07)
[2018-08-26] MEDS: MIDODRINE HCL 5MG TABLET PO SCH ×3 (09:07→17:21)
[2018-08-26] MEDS ORDERED: ERGOCALCIFEROL 50000UNITS CAPSULE PO SCH (12:00)
[2018-08-26 20:00] VITALS: BP 91/40
[2018-08-26] MEDS: FAMOTIDINE 20MG TABLET PO SCH (20:21)
[2018-08-26] MEDS: ATORVASTATIN CALCIUM 10MG TABLET PO SCH (20:21)
[2018-08-27] MEDS: METOCLOPRAMIDE HCL 5MG TABLET PO SCH ×4 (06:26→21:33)
[2018-08-27 08:00] VITALS: BP 89/38
[2018-08-27] MEDS: DOCUSATE SODIUM 100MG CAPSULE PO SCH ×2 (08:30→17:32)
[2018-08-27] MEDS: SEVELAMER CARBONATE 800 MG TABLET PO SCH ×3 (08:31→17:32)
[2018-08-27] MEDS: MIDODRINE HCL 5MG TABLET PO SCH ×3 (08:31→17:33)
[2018-08-27] MEDS: FOLIC ACID/VITAMIN B COMP W-C TABLET PO SCH (08:31)
[2018-08-27] MEDS: ZINC SULFATE 220 MG ( 50 ) CAPSULE PO SCH (08:31)
[2018-08-27] MEDS: ENOXAPARIN 30MG/0.3ML SYR SUBCUT SCH (08:32)
[2018-08-27] MEDS: AMIODARONE HCL 200 MG TABLET PO SCH (08:33)
[2018-08-27] MEDS: NYSTATIN POWDER 15GM TOP SCH ×2 (12:35→17:59)
[2018-08-27 20:00] VITALS: BP 88/40
[2018-08-27] MEDS: ATORVASTATIN CALCIUM 10MG TABLET PO SCH (21:33)
[2018-08-27] MEDS: FAMOTIDINE 20MG TABLET PO SCH (21:33)
[2018-08-27] MEDS: IPRATROPIUM/ALBUTEROL 0.5-3(2.5)MG/3ML NEB HHN SCH (22:00)
[2018-08-28] VITALS: BP 105/58
[2018-08-28] MEDS: IPRATROPIUM/ALBUTEROL 0.5-3(2.5)MG/3ML NEB HHN SCH ×4 (02:15→19:48)
[2018-08-28] MEDS: METOCLOPRAMIDE HCL 5MG TABLET PO SCH ×3 (05:50→16:52)
[2018-08-28 06:45] LABS: HEMATOCRIT. 33.9 % (36.0-48.0); HEMOGLOBIN. 10.4 g/dL (12.0-16.0); MEAN CORPUSCULAR HEMOGLOBIN 23.5 pg (28.0-32.0); MEAN CORPUSCULAR VOLUME 76.4 fL (81.0-99.0); MEAN PLATELET VOLUME 8.8 fl (7.4-10.4); PLATELET 193 x1000/uL (130-400); RED BLOOD CELL COUNT 4.43 mill/uL (4.2-5.4); RED CELL DISTRIBUTION WIDTH 19.9 % (11.6-14.6)
[2018-08-28 07:12] LABS: PHOSPHORUS 3.5 mg/dL (2.5-4.9)
[2018-08-28 08:00] VITALS: BP 105/38
[2018-08-28] MEDS: MIDODRINE HCL 5MG TABLET PO SCH ×3 (09:00→16:52)
[2018-08-28] MEDS: NYSTATIN POWDER 15GM TOP SCH ×3 (09:00→17:00)
[2018-08-28] MEDS: ENOXAPARIN 30MG/0.3ML SYR SUBCUT SCH (09:40)
[2018-08-28] MEDS: FOLIC ACID/VITAMIN B COMP W-C TABLET PO SCH (09:40)
[2018-08-28] MEDS: DOCUSATE SODIUM 100MG CAPSULE PO SCH ×2 (09:40→16:52)
[2018-08-28] MEDS: AMIODARONE HCL 200 MG TABLET PO SCH (09:40)
[2018-08-28] MEDS: ZINC SULFATE 220 MG ( 50 ) CAPSULE PO SCH (09:40)
[2018-08-28] MEDS: SEVELAMER CARBONATE 800 MG TABLET PO SCH ×2 (12:51→16:53)
[2018-08-28 13:48] LABS: PLATELET ESTIMATE NORMAL
[2018-08-28] MEDS ORDERED: ERGOCALCIFEROL 50000UNITS CAPSULE PO SCH (16:45)
[2018-08-28 20:00] VITALS: BP 83/38
[2018-08-28] MEDS ORDERED: EPOETIN ALFA 4000UNITS/ML VIAL SUBCUT SCH (21:00)
[2018-08-28 23:42] VITALS: BP 126/51
[2018-08-29 00:50] VITALS: BP 108/60
[2018-08-29] MEDS: IPRATROPIUM/ALBUTEROL 0.5-3(2.5)MG/3ML NEB HHN SCH ×4 (01:33→21:34)
[2018-08-29] MEDS: ATORVASTATIN CALCIUM 10MG TABLET PO SCH ×2 (01:54→21:42)
[2018-08-29] MEDS: METOCLOPRAMIDE HCL 5MG TABLET PO SCH ×5 (01:54→21:42)
[2018-08-29] MEDS: FAMOTIDINE 20MG TABLET PO SCH ×2 (01:54→21:42)
[2018-08-29 07:55] VITALS: BP 83/38
[2018-08-29] MEDS: DOCUSATE SODIUM 100MG CAPSULE PO SCH ×2 (09:10→17:20)
[2018-08-29] MEDS: FOLIC ACID/VITAMIN B COMP W-C TABLET PO SCH (09:10)
[2018-08-29] MEDS: ZINC SULFATE 220 MG ( 50 ) CAPSULE PO SCH (09:10)
[2018-08-29] MEDS: SEVELAMER CARBONATE 800 MG TABLET PO SCH ×3 (09:10→17:20)
[2018-08-29] MEDS: MIDODRINE HCL 5MG TABLET PO SCH ×3 (09:10→17:21)
[2018-08-29] MEDS: ENOXAPARIN 30MG/0.3ML SYR SUBCUT SCH (09:11)
[2018-08-29] MEDS: NYSTATIN POWDER 15GM TOP SCH ×3 (09:12→17:32)
[2018-08-29 20:00] VITALS: BP 114/42
[2018-08-30] MEDS: IPRATROPIUM/ALBUTEROL 0.5-3(2.5)MG/3ML NEB HHN SCH ×4 (01:10→21:20)
[2018-08-30] MEDS: METOCLOPRAMIDE HCL 5MG TABLET PO SCH ×5 (06:16→22:33)
[2018-08-30 07:12] LABS: BASOPHILS % 1.3 % (0.0-2.0); EOSINOPHILS % 2.6 % (0.0-5.0); HEMATOCRIT. 32.1 % (36.0-48.0); HEMOGLOBIN. 10.2 g/dL (12.0-16.0); LYMPHOCYTES % 27.2 % (20.0-50.0); MEAN CORPUSCULAR HEMOGLOBIN 24.3 pg (28.0-32.0); MEAN CORPUSCULAR VOLUME 76.4 fL (81.0-99.0); MEAN PLATELET VOLUME 9.3 fl (7.4-10.4); MONOCYTES % 10.4 % (2.0-8.0); NEUTROPHILS % 58.5 % (40.0-76.0); PLATELET 179 x1000/uL (130-400); RED CELL DISTRIBUTION WIDTH 19.9 % (11.6-14.6)
[2018-08-30 07:41] LABS: CHLORIDE 97 mEq/L (98-107)
[2018-08-30 07:46] LABS: PHOSPHORUS 3.2 mg/dL (2.5-4.9)
[2018-08-30 08:06] VITALS: BP 99/42
[2018-08-30] MEDS ORDERED: AMIODARONE HCL 200 MG TABLET PO SCH (09:00)
[2018-08-30] MEDS: ZINC SULFATE 220 MG ( 50 ) CAPSULE PO SCH (09:59)
[2018-08-30] MEDS: FOLIC ACID/VITAMIN B COMP W-C TABLET PO SCH (09:59)
[2018-08-30] MEDS: ENOXAPARIN 30MG/0.3ML SYR SUBCUT SCH (10:00)
[2018-08-30] MEDS: DOCUSATE SODIUM 100MG CAPSULE PO SCH ×3 (10:00→17:34)
[2018-08-30] MEDS: MIDODRINE HCL 5MG TABLET PO SCH ×3 (10:00→17:00)
[2018-08-30] MEDS: NYSTATIN POWDER 15GM TOP SCH ×3 (10:03→17:25)
[2018-08-30 20:00] VITALS: BP 121/46
[2018-08-30] MEDS: FAMOTIDINE 20MG TABLET PO SCH (22:32)
[2018-08-30] MEDS: ATORVASTATIN CALCIUM 10MG TABLET PO SCH (22:33)
[2018-08-31] MEDS: IPRATROPIUM/ALBUTEROL 0.5-3(2.5)MG/3ML NEB HHN SCH ×3 (01:20→13:00)
[2018-08-31] MEDS: METOCLOPRAMIDE HCL 5MG TABLET PO SCH ×2 (07:11→12:13)
[2018-08-31 08:00] VITALS: BP 95/37
[2018-08-31] MEDS: ENOXAPARIN 30MG/0.3ML SYR SUBCUT SCH (09:44)
[2018-08-31] MEDS: FOLIC ACID/VITAMIN B COMP W-C TABLET PO SCH (09:45)
[2018-08-31] MEDS: DOCUSATE SODIUM 100MG CAPSULE PO SCH (09:45)
[2018-08-31] MEDS: ZINC SULFATE 220 MG ( 50 ) CAPSULE PO SCH (09:45)
[2018-08-31] MEDS: MIDODRINE HCL 5MG TABLET PO SCH ×2 (09:47→12:19)
[2018-08-31] MEDS: NYSTATIN POWDER 15GM TOP SCH ×2 (09:47→13:00)
[2018-08-31 14:13] VITALS: BP 106/53
[2018-08-31] MEDS ORDERED: NYSTATIN POWDER 15GM TOP SCH (17:00)
== END 2018-08-31 14:45 | disposition home health service (06) | DRG 91 ==
PROVIDERS: ADMIT Physical Medicine & Rehabilitation Spinal Cord Injury Medicine; ATTEND Internal Medicine
PROC: 5A1D70Z Performance of Urinary Filtration, Intermittent, Less than 6 Hours Per Day (ICD-10-PCS; principal; 2018-08-16)
PROC: 5A1D70Z Performance of Urinary Filtration, Intermittent, Less than 6 Hours Per Day (ICD-10-PCS; 2018-08-18)
PROC: 5A1D70Z Performance of Urinary Filtration, Intermittent, Less than 6 Hours Per Day (ICD-10-PCS; 2018-08-21)
PROC: 5A1D70Z Performance of Urinary Filtration, Intermittent, Less than 6 Hours Per Day (ICD-10-PCS; 2018-08-23)
PROC: 5A1D70Z Performance of Urinary Filtration, Intermittent, Less than 6 Hours Per Day (ICD-10-PCS; 2018-08-25)
PROC: 5A1D70Z Performance of Urinary Filtration, Intermittent, Less than 6 Hours Per Day (ICD-10-PCS; 2018-08-28)
PROC: 5A1D70Z Performance of Urinary Filtration, Intermittent, Less than 6 Hours Per Day (ICD-10-PCS; 2018-08-30)
DX: G92 Toxic encephalopathy (principal); E43 Unspecified severe protein-calorie malnutrition; N18.6 End stage renal disease; A41.51 Sepsis due to Escherichia coli [E. coli]; J18.9 Pneumonia, unspecified organism; J98.11 Atelectasis; K81.0 Acute cholecystitis; I12.0 Hypertensive chronic kidney disease with stage 5 chronic kidney disease or end stage renal disease; E87.1 Hypo-osmolality and hyponatremia; E87.2 Acidosis; B96.1 Klebsiella pneumoniae [K. pneumoniae] as the cause of diseases classified elsewhere; D63.8 Anemia in other chronic diseases classified elsewhere; E11.22 Type 2 diabetes mellitus with diabetic chronic kidney disease; E66.9 Obesity, unspecified; E78.00 Pure hypercholesterolemia, unspecified; E78.5 Hyperlipidemia, unspecified; E83.39 Other disorders of phosphorus metabolism; E87.5 Hyperkalemia; E11.42 Type 2 diabetes mellitus with diabetic polyneuropathy; G89.29 Other chronic pain; I25.10 Atherosclerotic heart disease of native coronary artery without angina pectoris; I27.20 Pulmonary hypertension, unspecified; I48.0 Paroxysmal atrial fibrillation; J45.909 Unspecified asthma, uncomplicated; K21.9 Gastro-esophageal reflux disease without esophagitis; K59.00 Constipation, unspecified; L89.159 Pressure ulcer of sacral region, unspecified stage; I95.9 Hypotension, unspecified; R26.9 Unspecified abnormalities of gait and mobility; R53.81 Other malaise; N28.1 Cyst of kidney, acquired; R13.10 Dysphagia, unspecified; Z66 Do not resuscitate; Z16.12 Extended spectrum beta lactamase (ESBL) resistance; E55.9 Vitamin D deficiency, unspecified; K57.30 Diverticulosis of large intestine without perforation or abscess without bleeding; F41.9 Anxiety disorder, unspecified; F39 Unspecified mood [affective] disorder; D50.9 Iron deficiency anemia, unspecified; Z79.02 Long term (current) use of antithrombotics/antiplatelets; Z79.899 Other long term (current) drug therapy; Z86.718 Personal history of other venous thrombosis and embolism; Z99.2 Dependence on renal dialysis; Z68.29 Body mass index [BMI] 29.0-29.9, adult; Z88.8 Allergy status to other drugs, medicaments and biological substances; Z90.49 Acquired absence of other specified parts of digestive tract
CPT/HCPCS: 36415; 71045; 71260; 74176; 74177; 74181; 80048; 80076; 82105; 82248; 82306; 82378; 82533; 82607; 82728; 82746; 83540; 83550; 83735; 84100; 84134; 84443; 84630; 86301; 86304; 92508; 92523; 92610; 93970; 94640; 97110; 97116; 97163; 97166; 97530; 97535; A6261; C1893; G0515; J0885; J1650; J2185; J2405; J7030; J7050; J7620; J8597; Q9967

== ENCOUNTER 2018-09-25 13:09 | Inpatient (IN) | payer MEDICARE, MEDICAID ==
[~2018-09-25] VITALS: Ht 175.3 cm; Wt 79.8 kg
[2018-09-25] MEDS ORDERED: ONDANSETRON HCL 4MG/2ML INJ IV PRN (14:45)
[2018-09-25] MEDS ORDERED: ACETAMINOPHEN 325MG TABLET PO PRN (14:45)
[2018-09-25 15:13] LABS: BASOPHILS % 0.6 % (0.0-2.0); EOSINOPHILS % 0.3 % (0.0-5.0); HEMATOCRIT. 35.8 % (36.0-48.0); HEMOGLOBIN. 11.3 g/dL (12.0-16.0); LYMPHOCYTES % 17.8 % (20.0-50.0); MEAN CORPUSCULAR HEMOGLOBIN 24.9 pg (28.0-32.0); MEAN PLATELET VOLUME 10.1 fl (7.4-10.4); NEUTROPHILS % 71.3 % (40.0-76.0); PLATELET 142 x1000/uL (130-400); RED BLOOD CELL COUNT 4.53 mill/uL (4.2-5.4)
[2018-09-25 15:16] LABS: CHLORIDE 94 mEq/L (98-107)
[2018-09-25 15:19] LABS: INR 1.5; PROTHROMBIN TIME 14.6 sec (9.1-11.1)
[2018-09-25] MEDS ORDERED: SODIUM CHLORIDE 0.9% 250 ML IV ONE (15:45)
[2018-09-25] MEDS ORDERED: MIDODRINE HCL 5MG TABLET PO SCH (17:00)
[2018-09-25] MEDS ORDERED: SODIUM CHLORIDE 0.9% 1,000 ML IV ONE (18:28)
[2018-09-25] MEDS ORDERED: MIDODRINE HCL 10 MG TABLET PO SCH (19:00)
[2018-09-25] MEDS: MIDODRINE HCL 5MG TABLET PO SCH (19:20)
[2018-09-25] MEDS ORDERED: ATORVASTATIN CALCIUM 40MG TABLET PO SCH (21:00)
[2018-09-25] MEDS ORDERED: FENTANYL CITRATE/PF 50MCG/ML 2ML VIAL IV ONE (23:15)
[2018-09-25] MEDS ORDERED: NOREPINEPHRINE 8 MG in DEXT 5% WATER 242 ML IV NR (23:30)
[2018-09-25] MEDS ORDERED: NOREPINEPHRINE 8 MG in DEXT 5% WATER 246 ML IV NR (23:30)
[2018-09-26] VITALS (43 sets, daily range): BP systolic 73–168; BP diastolic 31–81
[2018-09-26 05:38] LABS: BASOPHILS % 0.3 % (0.0-2.0); EOSINOPHILS % 0.3 % (0.0-5.0); HEMATOCRIT. 40.3 % (36.0-48.0); HEMOGLOBIN. 12.6 g/dL (12.0-16.0); LYMPHOCYTES % 12.1 % (20.0-50.0); MEAN CORPUSCULAR HEMOGLOBIN 24.4 pg (28.0-32.0); MEAN CORPUSCULAR VOLUME 77.7 fL (81.0-99.0); MEAN PLATELET VOLUME 10.3 fl (7.4-10.4); MONOCYTES % 11.1 % (2.0-8.0); NEUTROPHILS % 76.2 % (40.0-76.0); PLATELET 128 x1000/uL (130-400); RED BLOOD CELL COUNT 5.18 mill/uL (4.2-5.4); RED CELL DISTRIBUTION WIDTH 20.7 % (11.6-14.6)
[2018-09-26] MEDS ORDERED: PHYTONADIONE 10 MG in DEXTROSE 5% WATER 50 ML IV ONE (06:15)
[2018-09-26] MEDS: MIDODRINE HCL 5MG TABLET PO SCH ×3 (09:00→21:18)
[2018-09-26] MEDS ORDERED: NOREPINEPHRINE 8 MG in DEXT 5% WATER 246 ML IV NR (11:45)
[2018-09-26] MEDS ORDERED: NOREPINEPHRINE 8 MG in DEXT 5% WATER 242 ML IV NR (11:45)
[2018-09-26] MEDS ORDERED: PHENYLEPHRINE 100MCG/ML 10ML VIAL (CATH LAB) IV ONE (14:00)
[2018-09-26] MEDS ORDERED: HEPARIN SODIUM 1,000 UNIT/1ML VIAL IV ONE (14:00)
[2018-09-26] MEDS ORDERED: LIDOCAINE HCL 1% 20ML VIAL (Pyxis) INJ ONE (14:33)
[2018-09-26] MEDS ORDERED: IODIXANOL 320MG/ML 100 ML BOTTLE IV ONE ×2 (14:33→15:50)
[2018-09-26] MEDS ORDERED: MIDAZOLAM HCL 2 MG/2 ML VIAL ONE (15:14)
[2018-09-26] MEDS ORDERED: FENTANYL CITRATE/PF 50MCG/ML 2ML VIAL ONE (15:14)
[2018-09-26] MEDS ORDERED: PROTAMINE SULFATE 10MG/ML VIAL 5ML IV ONE (16:09)
[2018-09-26] MEDS ORDERED: ONDANSETRON HCL 4MG/2ML INJ IV PRN (16:15)
[2018-09-26] MEDS ORDERED: ATROPINE SULFATE 1MG/10ML SYR IV PRN (16:15)
[2018-09-26] MEDS ORDERED: MORPHINE SULFATE 4 MG/ML CPJ (NOT FOR IM USE) IV PRN (16:15)
[2018-09-26] MEDS ORDERED: ACETAMINOPHEN 325MG TABLET PO PRN (16:15)
[2018-09-26] MEDS: SODIUM CHLORIDE 0.9% 1,000 ML IV SCH (17:54)
[2018-09-26] MEDS: MEROPENEM 500 MG in SODIUM CHLORIDE 0.9% 50 ML IV SCH (17:54)
[2018-09-26] MEDS: PANTOPRAZOLE 40MG DR TABLET PO SCH (17:55)
[2018-09-26] MEDS: FOLIC ACID/VITAMIN B COMP W-C TABLET PO SCH (17:55)
[2018-09-26] MEDS ORDERED: NOREPINEPHRINE 16 MG in DEXT 5% WATER 484 ML IV PRN (19:35)
[2018-09-26] MEDS: ATORVASTATIN CALCIUM 10MG TABLET PO SCH (21:19)
[2018-09-27] VITALS (94 sets, daily range): BP systolic -1–150; BP diastolic -1–69
[2018-09-27] MEDS: SODIUM CHLORIDE 0.9% 1,000 ML IV SCH ×2 (03:04→17:04)
[2018-09-27 05:42] LABS: BASOPHILS % 0.4 % (0.0-2.0); EOSINOPHILS % 0.5 % (0.0-5.0); HEMATOCRIT. 34.3 % (36.0-48.0); HEMOGLOBIN. 10.9 g/dL (12.0-16.0); LYMPHOCYTES % 7.8 % (20.0-50.0); MEAN CORPUSCULAR HEMOGLOBIN 24.6 pg (28.0-32.0); MEAN CORPUSCULAR VOLUME 77.6 fL (81.0-99.0); MEAN PLATELET VOLUME 9.6 fl (7.4-10.4); MONOCYTES % 10.9 % (2.0-8.0); NEUTROPHILS % 80.4 % (40.0-76.0); PLATELET 145 x1000/uL (130-400); RED BLOOD CELL COUNT 4.42 mill/uL (4.2-5.4)
[2018-09-27 05:53] LABS: CHLORIDE 97 mEq/L (98-107)
[2018-09-27] MEDS: PANTOPRAZOLE 40MG DR TABLET PO SCH (06:00)
[2018-09-27 06:03] LABS: PHOSPHORUS 4.4 mg/dL (2.5-4.9)
[2018-09-27] MEDS: MIDODRINE HCL 5MG TABLET PO SCH ×3 (09:26→17:12)
[2018-09-27] MEDS: FOLIC ACID/VITAMIN B COMP W-C TABLET PO SCH (09:26)
[2018-09-27 11:12] LABS: INR 1.5; PROTHROMBIN TIME 14.7 sec (9.1-11.1)
[2018-09-27] MEDS: MEROPENEM 500 MG in SODIUM CHLORIDE 0.9% 50 ML IV SCH (14:21)
[2018-09-27] MEDS: NYSTATIN POWDER 15GM TOP SCH (19:00)
[2018-09-27] MEDS: ATORVASTATIN CALCIUM 10MG TABLET PO SCH (21:35)
[2018-09-28] VITALS (93 sets, daily range): BP systolic 83–138; BP diastolic 30–71
[2018-09-28 05:36] LABS: HEMATOCRIT. 30.3 % (36.0-48.0); HEMOGLOBIN. 9.6 g/dL (12.0-16.0); MEAN CORPUSCULAR HEMOGLOBIN 24.6 pg (28.0-32.0); MEAN CORPUSCULAR VOLUME 77.9 fL (81.0-99.0); MEAN PLATELET VOLUME 9.4 fl (7.4-10.4); PLATELET 116 x1000/uL (130-400); RED BLOOD CELL COUNT 3.89 mill/uL (4.2-5.4)
[2018-09-28 05:44] LABS: CHLORIDE 99 mEq/L (98-107)
[2018-09-28] MEDS: SODIUM CHLORIDE 0.9% 1,000 ML IV SCH ×2 (05:55→18:20)
[2018-09-28] MEDS: PANTOPRAZOLE 40MG DR TABLET PO SCH (05:55)
[2018-09-28 05:59] LABS: PHOSPHORUS 4.8 mg/dL (2.5-4.9)
[2018-09-28] MEDS: FOLIC ACID/VITAMIN B COMP W-C TABLET PO SCH (08:58)
[2018-09-28] MEDS: MIDODRINE HCL 5MG TABLET PO SCH ×3 (08:58→17:35)
[2018-09-28] MEDS: NYSTATIN POWDER 15GM TOP SCH ×2 (09:00→17:36)
[2018-09-28 10:11] LABS: PLATELET ESTIMATE DECREASED
[2018-09-28] MEDS ORDERED: HEPARIN SODIUM 1,000 UNIT/1ML VIAL IV NR (10:15)
[2018-09-28] MEDS ORDERED: ALTEPLASE 2MG/VIAL ITC NR (11:30)
[2018-09-28] MEDS ORDERED: NOREPINEPHRINE 16 MG in DEXT 5% WATER 484 ML IV PRN (11:30)
[2018-09-28] MEDS ORDERED: IPRATROPIUM/ALBUTEROL 0.5-3(2.5)MG/3ML NEB HHN PRN (14:30)
[2018-09-28] MEDS: MEROPENEM 500 MG in SODIUM CHLORIDE 0.9% 50 ML IV SCH (15:41)
[2018-09-28] MEDS ORDERED: NOREPINEPHRINE 4MG/250ML PMX 250 ML IV ONE (20:15)
[2018-09-28] MEDS: ATORVASTATIN CALCIUM 10MG TABLET PO SCH (20:32)
[2018-09-29] VITALS (41 sets, daily range): BP systolic 89–160; BP diastolic 37–84
[2018-09-29 05:33] LABS: BASOPHILS % 0.5 % (0.0-2.0); EOSINOPHILS % 2.2 % (0.0-5.0); HEMATOCRIT. 31.1 % (36.0-48.0); HEMOGLOBIN. 9.8 g/dL (12.0-16.0); LYMPHOCYTES % 17.3 % (20.0-50.0); MEAN CORPUSCULAR HEMOGLOBIN 24.6 pg (28.0-32.0); MEAN CORPUSCULAR VOLUME 78.4 fL (81.0-99.0); MEAN PLATELET VOLUME 9.1 fl (7.4-10.4); MONOCYTES % 12.6 % (2.0-8.0); NEUTROPHILS % 67.4 % (40.0-76.0); PLATELET 117 x1000/uL (130-400); RED BLOOD CELL COUNT 3.97 mill/uL (4.2-5.4); RED CELL DISTRIBUTION WIDTH 20.1 % (11.6-14.6)
[2018-09-29] MEDS: PANTOPRAZOLE 40MG DR TABLET PO SCH (05:47)
[2018-09-29 06:17] LABS: PHOSPHORUS 3.9 mg/dL (2.5-4.9)
[2018-09-29] MEDS: SODIUM CHLORIDE 0.9% 1,000 ML IV SCH (07:40)
[2018-09-29] MEDS: MIDODRINE HCL 5MG TABLET PO SCH ×3 (08:37→17:24)
[2018-09-29] MEDS: FOLIC ACID/VITAMIN B COMP W-C TABLET PO SCH (08:37)
[2018-09-29] MEDS: NYSTATIN POWDER 15GM TOP SCH ×2 (09:43→17:25)
[2018-09-29] MEDS: METOCLOPRAMIDE HCL 5MG TABLET PO SCH ×3 (11:30→20:59)
[2018-09-29] MEDS ORDERED: ALTEPLASE 2MG/VIAL ITC NR (11:30)
[2018-09-29] MEDS ORDERED: IOHEXOL-300 100 ML BOTTLE ONE ×2 (12:53→14:07)
[2018-09-29] MEDS ORDERED: LIDOCAINE HCL 1% 20ML VIAL (Pyxis) INJ ONE (12:53)
[2018-09-29] MEDS ORDERED: IPRATROPIUM/ALBUTEROL 0.5-3(2.5)MG/3ML NEB HHN SCH (13:00)
[2018-09-29] MEDS ORDERED: MIDAZOLAM HCL 2 MG/2 ML VIAL ONE (13:28)
[2018-09-29] MEDS ORDERED: FENTANYL CITRATE/PF 50MCG/ML 2ML VIAL ONE (13:28)
[2018-09-29] MEDS ORDERED: HEPARIN 1000 UNITS/ML 10ML ONE (13:46)
[2018-09-29] MEDS: MEROPENEM 500 MG in SODIUM CHLORIDE 0.9% 50 ML IV SCH (14:00)
[2018-09-29] MEDS: ATORVASTATIN CALCIUM 10MG TABLET PO SCH (20:59)
[2018-09-29] MEDS ORDERED: EPOETIN ALFA 4000UNITS/ML VIAL SUBCUT SCH (21:00)
[2018-09-30] VITALS (10 sets, daily range): BP systolic 98–134; BP diastolic 25–73
[2018-09-30] MEDS: SODIUM CHLORIDE 0.9% 1,000 ML IV SCH (05:03)
[2018-09-30 06:13] LABS: HEMATOCRIT. 31.8 % (36.0-48.0); MEAN CORPUSCULAR HEMOGLOBIN 24.5 pg (28.0-32.0); MEAN CORPUSCULAR VOLUME 78.2 fL (81.0-99.0); MEAN PLATELET VOLUME 9.4 fl (7.4-10.4); PLATELET 132 x1000/uL (130-400); RED BLOOD CELL COUNT 4.07 mill/uL (4.2-5.4); RED CELL DISTRIBUTION WIDTH 20.2 % (11.6-14.6)
[2018-09-30] MEDS: METOCLOPRAMIDE HCL 5MG TABLET PO SCH ×4 (06:30→20:55)
[2018-09-30] MEDS: PANTOPRAZOLE 40MG DR TABLET PO SCH (06:30)
[2018-09-30 08:21] LABS: PLATELET ESTIMATE NORMAL
[2018-09-30] MEDS: ENOXAPARIN 30MG/0.3ML SYR SUBCUT SCH ×2 (09:00→09:58)
[2018-09-30] MEDS: MIDODRINE HCL 5MG TABLET PO SCH ×3 (09:58→17:28)
[2018-09-30] MEDS: FOLIC ACID/VITAMIN B COMP W-C TABLET PO SCH (09:58)
[2018-09-30] MEDS: NYSTATIN POWDER 15GM TOP SCH ×2 (10:01→17:29)
[2018-09-30] MEDS ORDERED: HEPARIN SODIUM 1,000 UNIT/1ML VIAL IV SCH (12:30)
[2018-09-30] MEDS: MEROPENEM 500 MG in SODIUM CHLORIDE 0.9% 50 ML IV SCH (14:47)
[2018-09-30] MEDS: ATORVASTATIN CALCIUM 10MG TABLET PO SCH (20:55)
[2018-10-01] VITALS: BP 119/38
== END 2018-10-01 00:05 | disposition short-term general hospital (02) | DRG 252 ==
LOC: ER 13:09 → MICUSO 15:46 → EDBEDREQ 15:49 → EDBEDREQSVC 15:49 → EDBEDREQTM 15:49 → ENRESERV 21:59 → CANRESERV 21:59 → EDBEDREQSVC 09-26 02:14 → ENRESERV 09-26 11:54 → 6WST 09-30 03:15
PROVIDERS: ADMIT Internal Medicine; ATTEND Internal Medicine
PROC: 06PYX3Z Removal of Infusion Device from Lower Vein, External Approach (ICD-10-PCS; principal; 2018-09-25)
PROC: 06HY33Z Insertion of Infusion Device into Lower Vein, Percutaneous Approach (ICD-10-PCS; 2018-09-25)
PROC: 06HY33Z Insertion of Infusion Device into Lower Vein, Percutaneous Approach (ICD-10-PCS; 2018-09-26)
PROC: B54BZZA Ultrasonography of Right Lower Extremity Veins, Guidance (ICD-10-PCS; 2018-09-26)
PROC: 4A023N8 Measurement of Cardiac Sampling and Pressure, Bilateral, Percutaneous Approach (ICD-10-PCS; 2018-09-27)
PROC: B2111ZZ Fluoroscopy of Multiple Coronary Arteries using Low Osmolar Contrast (ICD-10-PCS; 2018-09-27)
PROC: B2151ZZ Fluoroscopy of Left Heart using Low Osmolar Contrast (ICD-10-PCS; 2018-09-27)
PROC: 5A1D70Z Performance of Urinary Filtration, Intermittent, Less than 6 Hours Per Day (ICD-10-PCS; 2018-09-28)
PROC: 057A3ZZ Dilation of Left Brachial Vein, Percutaneous Approach (ICD-10-PCS; 2018-09-29)
PROC: 3E03317 Introduction of Other Thrombolytic into Peripheral Vein, Percutaneous Approach (ICD-10-PCS; 2018-09-29)
PROC: 037Y3ZZ Dilation of Upper Artery, Percutaneous Approach (ICD-10-PCS; 2018-09-29)
PROC: 05763ZZ Dilation of Left Subclavian Vein, Percutaneous Approach (ICD-10-PCS; 2018-09-29)
PROC: B51W1ZZ Fluoroscopy of Dialysis Shunt/Fistula using Low Osmolar Contrast (ICD-10-PCS; 2018-09-29)
PROC: B31J1ZZ Fluoroscopy of Left Upper Extremity Arteries using Low Osmolar Contrast (ICD-10-PCS; 2018-09-29)
PROC: B5171ZZ Fluoroscopy of Left Subclavian Vein using Low Osmolar Contrast (ICD-10-PCS; 2018-09-29)
PROC: B51N1ZZ Fluoroscopy of Left Upper Extremity Veins using Low Osmolar Contrast (ICD-10-PCS; 2018-09-29)
PROC: B5181ZZ Fluoroscopy of Superior Vena Cava using Low Osmolar Contrast (ICD-10-PCS; 2018-09-29)
PROC: 5A1D70Z Performance of Urinary Filtration, Intermittent, Less than 6 Hours Per Day (ICD-10-PCS; 2018-09-29)
DX: T82.868A Thrombosis due to vascular prosthetic devices, implants and grafts, initial encounter (principal); E43 Unspecified severe protein-calorie malnutrition; J96.00 Acute respiratory failure, unspecified whether with hypoxia or hypercapnia; N18.6 End stage renal disease; D68.9 Coagulation defect, unspecified; N25.81 Secondary hyperparathyroidism of renal origin; I12.0 Hypertensive chronic kidney disease with stage 5 chronic kidney disease or end stage renal disease; E87.1 Hypo-osmolality and hyponatremia; E87.2 Acidosis; Q44.6 Cystic disease of liver; Q61.3 Polycystic kidney, unspecified; K80.40 Calculus of bile duct with cholecystitis, unspecified, without obstruction; I95.9 Hypotension, unspecified; Z66 Do not resuscitate; E11.22 Type 2 diabetes mellitus with diabetic chronic kidney disease; I25.10 Atherosclerotic heart disease of native coronary artery without angina pectoris; D63.8 Anemia in other chronic diseases classified elsewhere; D69.6 Thrombocytopenia, unspecified; D72.819 Decreased white blood cell count, unspecified; E78.00 Pure hypercholesterolemia, unspecified; E78.5 Hyperlipidemia, unspecified; E87.70 Fluid overload, unspecified; I27.20 Pulmonary hypertension, unspecified; I48.0 Paroxysmal atrial fibrillation; J45.909 Unspecified asthma, uncomplicated; Y84.1 Kidney dialysis as the cause of abnormal reaction of the patient, or of later complication, without mention of misadventure at the time of the procedure; M19.90 Unspecified osteoarthritis, unspecified site; K21.9 Gastro-esophageal reflux disease without esophagitis; K76.89 Other specified diseases of liver; L89.159 Pressure ulcer of sacral region, unspecified stage; Y83.2 Surgical operation with anastomosis, bypass or graft as the cause of abnormal reaction of the patient, or of later complication, without mention of misadventure at the time of the procedure; Z82.49 Family history of ischemic heart disease and other diseases of the circulatory system; Z99.2 Dependence on renal dialysis; Z88.8 Allergy status to other drugs, medicaments and biological substances; Z79.82 Long term (current) use of aspirin; Z79.899 Other long term (current) drug therapy; Z83.3 Family history of diabetes mellitus; Z86.718 Personal history of other venous thrombosis and embolism; Z87.01 Personal history of pneumonia (recurrent); Y92.89 Other specified places as the place of occurrence of the external cause; Z68.26 Body mass index [BMI] 26.0-26.9, adult
CPT/HCPCS: 36415; 36556; 36569; 36680; 36905; 36907; 71045; 74018; 74176; 76937; 77001; 80048; 82962; 83605; 83735; 84100; 84443; 84484; 85347; 87077; 87186; 93005; 93460; 93970; 96361; 96365; 96375; 97162; 97530; 99152; 99153; 99291; A6261; C1725; C1726; C1752; C1757; C1766; C1769; C1893; J0885; J1644; J1650; J2185; J2250; J2370; J2405; J2720; J2997; J3010; J3430; J3490; J7030; J7050; J7060; J7620; J8597; Q9967; G0500